=== PATIENT | female | born 1970 | race Caucasian/White ===

== ENCOUNTER 2022-01-20 07:00 | Inpatient (IN) ==
--- NOTE | 2021-12-25 12:54 | PAT Medication Instructions ---
Medication Instructions Date of Service December 25, 2021 Home Medications atorvastatin 10 mg tablet 10 mg PO HS cholecalciferol (vitamin D3) 125 mcg (5,000 unit) tablet (Vitamin D3) 125 mcg PO HS cyanocobalamin (vitamin B-12) 1,000 mcg capsule 1,000 mcg PO HS dulaglutide 1.5 mg/0.5 mL subcutaneous pen injector (Trulicity) 1.5 mg subcut WK fluoxetine 40 mg capsule 40 mg PO HS furosemide 40 mg tablet (Lasix) 40 mg PO BID gabapentin 600 mg tablet 600 mg PO HS hydroxyzine HCl 25 mg tablet 25 mg PO BID meloxicam 15 mg tablet 15 mg PO DAILY metformin 1,000 mg tablet 1,000 mg PO BID ropinirole 0.5 mg tablet 0.5 mg PO HS zolpidem 10 mg tablet (Ambien) 10 mg PO HS Continue as directed dulaglutide 1.5 mg/0.5 mL subcutaneous pen injector (Trulicity) 1.5 mg subcut WK ASK your surgeon for instructions meloxicam 15 mg tablet 15 mg PO DAILY DO NOT take the morning of surgery furosemide 40 mg tablet (Lasix) 40 mg PO BID metformin 1,000 mg tablet 1,000 mg PO BID Take morning of surgery With a small sip of water, OTHERWISE NOTHING TO EAT OR DRINK AFTER MIDNIGHT: hydroxyzine HCl 25 mg tablet 25 mg PO BID Take evening before surgery atorvastatin 10 mg tablet 10 mg PO HS cholecalciferol (vitamin D3) 125 mcg (5,000 unit) tablet (Vitamin D3) 125 mcg PO HS cyanocobalamin (vitamin B-12) 1,000 mcg capsule 1,000 mcg PO HS fluoxetine 40 mg capsule 40 mg PO HS furosemide 40 mg tablet (Lasix) 40 mg PO BID gabapentin 600 mg tablet 600 mg PO HS hydroxyzine HCl 25 mg tablet 25 mg PO BID metformin 1,000 mg tablet 1,000 mg PO BID ropinirole 0.5 mg tablet 0.5 mg PO HS zolpidem 10 mg tablet (Ambien) 10 mg PO HS Other Notes If you have any questions please call us at [phone] or [phone] or [phone] or [phone]
--- NOTE | 2022-01-01 10:24 | Anesthesiology Consultation ---
Date of Service January 01, 2022 Assessment & Plan (1) Encounter for pre-operative examination: Plan - check BSG am DOS. - PCP pre-op evaluation 01/07/22. PAT testing to be faxed to PCP. Chart Review Chart Review: Pending: Refer to Additional Notes / Consult section and Patient seen in Pre Admission Testing Teaching & Discussion Pre-Anesthesia Teaching/Discussion Notes: Instructed NPO after midnight before surgery, except medications with 15 cc of water. Medication instructions provided according to the PAT guidelines. History Surgery Operation Date: 01/19/22 13:10 Proposed Procedures p L4-S1 Decompression and Fusion, Spinal Cord Monitoring - Pradip Gilliam, Height/Weight Height: 5 ft 5 in Weight: 87.997 kg Allergies Allergy/AdvReac Type Severity Reaction Status Date / Time cinnamon Allergy Intermediate Hives Verified 12/25/21 11:19 Medications Home Medications Medication Instructions Recorded Confirmed Last Taken atorvastatin 10 mg tablet 10 mg PO HS 12/25/21 12/25/21 Unknown cholecalciferol (vitamin D3) 125 125 mcg PO HS 12/25/21 12/25/21 Unknown mcg (5,000 unit) tablet (Vitamin D3) cyanocobalamin (vitamin B-12) 1,000 mcg PO HS 12/25/21 12/25/21 Unknown 1,000 mcg capsule dulaglutide 1.5 mg/0.5 mL 1.5 mg subcut WK 12/25/21 12/25/21 Unknown subcutaneous pen injector (Trulicity) fluoxetine 40 mg capsule 40 mg PO HS 12/25/21 12/25/21 Unknown furosemide 40 mg tablet (Lasix) 40 mg PO BID 12/25/21 12/25/21 Unknown gabapentin 600 mg tablet 600 mg PO HS 12/25/21 12/25/21 Unknown hydroxyzine HCl 25 mg tablet 25 mg PO BID 12/25/21 12/25/21 Unknown meloxicam 15 mg tablet 15 mg PO DAILY 12/25/21 12/25/21 Unknown metformin 1,000 mg tablet 1,000 mg PO BID 12/25/21 12/25/21 Unknown ropinirole 0.5 mg tablet 0.5 mg PO HS 12/25/21 12/25/21 Unknown zolpidem 10 mg tablet (Ambien) 10 mg PO HS 12/25/21 12/25/21 Unknown Past Medical History Medical History (Updated 01/01/22 @ 11:15 by Philly Wyatt PA-C) Degenerative disc disease Depression Diabetes mellitus, type 2 NIDDM History of COVID-17 JUNE 2019>denies hospitalization>SYMPTOMS RESOLVED Hx of gout Hyperlipidemia Migraine Peripheral neuropathy Restless leg syndrome Sleep apnea NO DEVICE Spinal stenosis Swelling of lower extremity REASON FOR LASIX BID Patient denies h/o stroke, seizures, heart attack, heart failure, HTN, blood clots or blood transfusions. Exercise / Class Metabolic Activity III < 4 Walking/Shop/Light housework (denies CP or SOB with usual activities) Past Family History Family History Other No family history of adverse response to anesthesia Past Surgical History Surgical History (Updated 01/01/22 @ 11:16 by Philly Wyatt PA-C) H/O elbow surgery LEFT X 2 (NERVE REPAIR) H/O total hysterectomy History of appendectomy History of cholecystectomy History of colonoscopy History of tonsillectomy and adenoidectomy Nausea and vomiting after administration of anesthetic agent denies needing scop patch S/P lumbar microdiscectomy [place] teeth removed Past Anesthesia History No Hx of Anesthesia Complications and No Family Hx of Anesthesia Complications History of PONV History of PONV (denies needing scop patch) and Hx of Motion Sickness Social History Smoking Status: Current every day smoker tobacco type: cigarettes Smoking cigarettes per day: 10-20 CIG PER DAY>ADVISED Do You Dip or Chew Tobacco: No Hx Alcohol Use: Yes alcohol intake frequency: holidays/special occasions only substance use type: does not use Review of Systems Patient denies chest pain, shortness of breath, dyspnea on exertion, reflux, fever, chills, cough, wheezing, or palpitations. Physical Exam Vital Signs Vitals BP 108/77 P 85 TEMP 98.3 SP02 98% on RA RESP 18 Physical Full cervical extension range of motion without pain Slightly enlarged L , s/p biopsy TMD 3.5 finger breadths Mallampati Score 2 Dentition: intact, denies chipped or loose teeth, caps/crowns, implants or bridges Lungs: normal respiratory effort. Clear throughout to auscultation, no adventitious breath sounds Cardiac: regular rate and rhythm, no murmurs noted Carotid arteries: negative bruit bilat Lab Results Anesthesia Preop Results Results Anesthesia Widget: WBC 11.68 K/ul (4.8-10.8) H 01/01/22 Hgb 14.4 g/dl (12.0-16.0) 01/01/22 Hct 41.9 % (34.1-44.9) 01/01/22 Plt 351 K/uL (130-400) 01/01/22 Na 139 mmol/L (136-145) 01/01/22 K 4.0 mmol/L (3.5-5.1) 01/01/22 Cl 104 mmol/L (98-107) 01/01/22 CO2 26 mmol/L (21-32) 01/01/22 BUN 17 mg/dl (6-23) 01/01/22 Creat 0.79 mg/dl (0.6-1.2) 01/01/22 Glucose Level 100 mg/dl (70-99(Fasting)) H 01/01/22 PT 10.2 Seconds (9.0-12.0) 01/01/22 PTT 26.1 Seconds (21.0-31.0) 01/01/22 INR 1.0 (0.9-1.1) 01/01/22 HA1c 6.7 % (4.5-5.6) H 01/01/22 Urine Color Yellow 01/01/22 Urine Appearance Clear (Clear) 01/01/22 Urine pH 5.5 (4.5-7.5) 01/01/22 Urine Specific [place] 1.007 (1.000-1.030) 01/01/22 Urine Protein Negative (Negative) 01/01/22 Urine Glucose (UA) Negative (Negative) 01/01/22 Urine Ketones Negative (Negative) 01/01/22 Urine Blood Negative (Negative) 01/01/22 Urine Nitrite Negative (Negative) 01/01/22 Urine Bilirubin Negative (Negative) 01/01/22 Urine Urobilinogen Negative (Negative) 01/01/22 Urine Leukocyte Esterase Negative (Negative) 01/01/22 Blood Type O Positive 01/01/22 Antibody Screen NEGATIVE 01/01/22 Testing Electrocardiogram Date: 01/01/22 NSR, rate 81 bpm Left axis deviation RBBB Chest X-Ray Date: 01/01/22 No acute chest disease COVID-19 Risk Screen Screening Information COVID-19 Screen Date: 01/01/22 Exposure 21 Days Family/Household +COVID Last 21 Days: No Exposure 10 Days Any COVID Exposure Last 10 Days: No Symptoms Last 10 Days Experienced COVID Sx Last 10 Days: No + COVID 0-90 Days COVID + in Last 0-90 Days: No
[~2022-01-20 07:00] MED LIST: ACETAMINOPHEN 500 MG TAB PO SCH; CeleBREX 200 MG CAP PO SCH; GABAPENTIN 900 MG DOSE PO SCH; LR 15ML/HR IV SCH; ceFAZolin 2000MG 2,000 MG/15 ML SYR IV SCH
[2022-01-20] MEDS ORDERED: ePHEDrine sulfate 50 MG/ML AMP IV PRN (08:08)
[2022-01-20] MEDS ORDERED: ONDANSETRON INJ 2 MG/ML 2 ML VIAL IV PRN ×2 (08:08→14:01)
[2022-01-20] MEDS ORDERED: ATROPINE SULFATE 0.1 MG/ML 10ML SYR IV PRN (08:08)
[2022-01-20] MEDS ORDERED: MEPERIDINE HCL 25 MG/ML CARP/VIAL IV PRN (08:08)
[2022-01-20] MEDS ORDERED: MIDAZOLAM HCL 1 MG/ML 2ML VIAL ONE (08:25)
[2022-01-20] MEDS ORDERED: fentaNYL citrate 100 MCG/2 ML VIAL ONE ×2 (08:25)
--- NOTE | 2022-01-20 09:10 | History & Physical Bridge Note ---
Date of Service January 20, 2022 History & Physical Bridge Note I have examined the patient, reviewed the History & Physical and in the interval since the performance of the History & Physical I have noted the following changes of clinical significance: no changes noted
--- NOTE | 2022-01-20 09:11 | History & Physical Report ---
Date of Service January 20, 2022 Assessment & Plan (1) Neurogenic claudication due to lumbar spinal stenosis: Plan: L4-S1 decompression and fusion History of Present Illness Chief Complaint: Back and leg pain Primary Care Provider: Brett Ayala This is a 51-year-old female who presents with chronic persistent back and leg pain. Failed extensive course of nonoperative care. For surgical invention. Allergies Allergy/AdvReac Type Severity Reaction Status Date / Time cinnamon Allergy Intermediate Hives Verified 01/20/22 07:22 Home Medications Medication Instructions Recorded Confirmed Type atorvastatin 10 mg tablet 10 mg PO HS 12/25/21 01/20/22 History cholecalciferol (vitamin D3) 125 125 mcg PO HS 12/25/21 01/20/22 History mcg (5,000 unit) tablet (Vitamin D3) cyanocobalamin (vitamin B-12) 1,000 mcg PO HS 12/25/21 01/20/22 History 1,000 mcg capsule dulaglutide 1.5 mg/0.5 mL 1.5 mg subcut WK 12/25/21 01/20/22 History subcutaneous pen injector (Trulicity) fluoxetine 40 mg capsule 40 mg PO HS 12/25/21 01/20/22 History furosemide 40 mg tablet (Lasix) 40 mg PO BID 12/25/21 01/20/22 History gabapentin 600 mg tablet 600 mg PO HS 12/25/21 01/20/22 History hydroxyzine HCl 25 mg tablet 25 mg PO BID 12/25/21 01/20/22 History meloxicam 15 mg tablet 15 mg PO DAILY 12/25/21 01/20/22 History metformin 1,000 mg tablet 1,000 mg PO BID 12/25/21 01/20/22 History ropinirole 0.5 mg tablet 0.5 mg PO HS 12/25/21 01/20/22 History zolpidem 10 mg tablet (Ambien) 10 mg PO HS 12/25/21 01/20/22 History Past Med/Surg History Medical History (Updated 01/20/22 @ 09:11 by Pradip Gilliam DO) Degenerative disc disease Depression Diabetes mellitus, type 2 NIDDM History of COVID-17 JUNE 2019>denies hospitalization>SYMPTOMS RESOLVED Hx of gout Hyperlipidemia Migraine Peripheral neuropathy Restless leg syndrome Sleep apnea NO DEVICE Spinal stenosis Swelling of lower extremity REASON FOR LASIX BID Surgical History H/O elbow surgery LEFT X 2 (NERVE REPAIR) H/O total hysterectomy History of appendectomy History of cholecystectomy History of colonoscopy History of tonsillectomy and adenoidectomy Nausea and vomiting after administration of anesthetic agent denies needing scop patch S/P lumbar microdiscectomy [place] teeth removed Family History Other No family history of adverse response to anesthesia Social History (System 07/10/18 @ 15:13 by Yael Rojas) Smoking Status: Current every day smoker Cigarettes Per Day: 10-20 CIG PER DAY>ADVISED; Second Hand Exposure: Yes (BOYFRIEND SMOKES); Do You Dip or Chew Tobacco: No; Hx Alcohol Use: Yes Preferred Language: [place] Cutter Gas Required: No Beliefs That Will Affect Care: None Current Living Situation: Significant Other Feels Safe at Home: Yes Safety Concerns: Feels Safe At This Time Assistive Devices: None Physical Exam Physical Exam: Patient is alert and oriented Heart regular rhythm Lungs clear Results & Data Results & Data ([facility]) Vital Signs (Past 12 Hours) Vital Signs Temp Pulse Resp BP Pulse Ox O2 Del Method 01/20/22 07:29 36.8 C 92 H 16 124/87 98 Room Air
[2022-01-20] MEDS ORDERED: ceFAZolin 330 MG/ML 1 GM VIAL ONE (09:24)
[2022-01-20] MEDS ORDERED: BUPIVACAINE/EPINEPHRINE 0.25% 1:200,000 30 ML VIAL ONE (09:24)
[2022-01-20] MEDS ORDERED: HYDROmorphone INJ 2 MG/ML SYR/VIAL ONE (10:12)
[2022-01-20] MEDS ORDERED: FLOSEAL HEMOSTATIC MATRIX 10ML TOP ONE (10:24)
[2022-01-20] MEDS ORDERED: LARYING-O-JET KIT (LTA) ONE (10:26)
[2022-01-20] MEDS ORDERED: GLYCOPYRROLATE 0.2 MG/ML VIAL ONE (10:26)
[2022-01-20] MEDS ORDERED: LIDOCAINE 2% MPF LOCAL 5 ML VIAL INFIL ONE (10:26)
[2022-01-20] MEDS ORDERED: DEXAMETHASONE SOD INJ 4 MG/ML VIAL ONE (10:26)
[2022-01-20] MEDS ORDERED: ROCURONIUM BROMIDE 10 MG/ML 5 ML VIAL IV ONE (10:26)
[2022-01-20] MEDS ORDERED: NEOSTIGMINE METHYLSULFATE 1 MG/ML 10ML VIAL ONE (10:26)
[2022-01-20] MEDS ORDERED: PROPOFOL IV EMULSION 10 MG/ML 20 ML VIAL IV ONE (10:26)
[2022-01-20] MEDS ORDERED: PHENYLEPHRINE 100MCG/ML 5ML SYR ONE (10:26)
[2022-01-20] MEDS ORDERED: ONDANSETRON INJ 2 MG/ML 2 ML VIAL ONE (10:26)
--- NOTE | 2022-01-20 12:20 | Operative Report ---
Post Operative Report Pre & Post Diagnosis Operation Date: 01/19/22 12:00 <No data on this case meets the specified criteria> Operation Date: 01/20/22 09:05 Pre-Op Diagnosis: Neurogenic Claudication due to Lumbar Spinal Stenosis Post-Op Diagnosis: Neurogenic Claudication due to Lumbar Spinal Stenosis I identified the patient and participated in the time-out.: Yes Procedure Operation Date: 01/19/22 12:00 <No data on this case meets the specified criteria> Operation Date: 01/20/22 09:05 Actual Procedures #1 revision decompression with bilateral medial facetectomies and foraminotomies L3-L4, L4-5 and L5-S1. #2 posterior spinal fusion L4-5 L5-S1. #3 placement posterior instrumentation L4-5 L5-S1. #4 interbody fusion L4-L5 L5-S1. #5 placement of Spira 9 x 20 mm cage at L4-5 and 11 x 22 mm cage L5-S1. #6 placement locally harvested morselized autograft in the posterior gutters. #7 placement I factor quality test interbody space and posterior lateral gutters. Surgeon Pradip Gilliam, DO Ice Cutter None Estimated Blood Loss 75 Findings Consistent with Post-Op Diagnosis Specimens None Indications This is a 51-year-old female with presents above-mentioned diagnosis after failed extensive course of nonoperative care is here for the above-mentioned procedure. Description of Procedure Patient was met with identified informed consent obtained. Patient was then taken to the operative suite underwent a patient placed in a prone position on the [place] table top Scott frame. All bony prominences well-padded eyes inspected to ensure no external pressure placed upon them. This point lumbar spine was prepped and draped in a sterile fashion. Sharp dissection with assistance bradycardia spinal abdomen exposing the remaining lamina transverse processes of L4-L5 and sacral ala bilaterally. From a caudal to cephalad fashion revision complete laminectomy of L5 L4 and partial L3 was performed including bilateral medial facetectomies and foraminotomies addressing severe spinal stenosis. Pedicle screws were then placed in L4-L5 and S1 levels bilaterally with assistance of fluoroscopy and appropriate sized alvarado placed. By way of a transforaminal approach and left complete discectomy of L5- S1 was performed endplates curetted to subcortical any bone and a 11 x 22 mm spiral cage with I factor tapped in position. Then proceeded to L4-L5 and again by way the transforaminal approach on the left complete discectomy performed endplates curetted to subcortically bone and a 9 x 20 mm spiral cage with I factor tapped in position. The rods then locked in final position bilaterally. The transverse processes of L4-L5 and sacral ala burred to subcortical bleeding bone. I factor model V toss and locally harvested morselized autograft was placed in the posterior gutters. 15 round MILENA drain inserted. The incision was then closed with 1 Vicryl the fascia 2-0 Vicryl subcutaneously and 4 Monocryl for fascial closure. Steri-Strip sterile dressings placed. Patient waken taken to PACU in stable condition. Please note spinal cord monitoring was utilized at the procedure no changes noted. I attest to the content of the Intraoperative Record and any orders documented therein. Any exceptions are noted below.
--- NOTE | 2022-01-20 12:31 | Fluoroscopy Report ---
FL lumbar spine 2-3V HISTORY: 51 years-old Female L4-S1 DFI COMPARISON: None TECHNIQUE: 2 spot fluoroscopic images of the lumbar spine were obtained utilizing 37.0 seconds fluoro scopy time FINDINGS: Posterior interbody alvarado and screw fusion with discectomy at L4-S1. Alignment appears satisfactory. Th e hardware appears intact. A surgical sponge projects over the presacral tissues. Mild multilevel spo ndylitic spurring. IMPRESSION: Fluoroscopic assistance as above. ACT 112: Negative or not required by law. The above report was generated using voice recognition software. It may contain grammatical, syntax o r spelling errors. Electronically signed by: Cedric Herring M.D. 01/20/2022 12:29 PM
[2022-01-20] MEDS: fentaNYL citrate 100 MCG/2 ML VIAL IV PRN ×4 (12:33→12:48)
[2022-01-20] MEDS: MoRPHine SULFATE 10 MG/ML CARP/VIAL IV PRN ×2 (12:53→12:58)
--- NOTE | 2022-01-20 13:07 | Anesthesiology Progress Note ---
Date of Service January 20, 2022 Anesthesia Post Procedure Vital Signs Vital Signs: Temp Pulse Pulse Resp BP Pulse Ox O2 Del Method 01/20/22 13:00 104 H 12 128/77 99 Oxymask 01/20/22 12:50 108 H 13 123/92 97 Oxymask 01/20/22 12:40 105 H 14 131/86 99 Oxymask 01/20/22 12:30 100 H 14 125/77 98 Oxymask 01/20/22 12:22 36.5 C 98 H 14 130/83 99 Oxymask 01/20/22 07:29 36.8 C 92 H 16 124/87 98 Room Air O2 Flow Rate 01/20/22 13:00 4 01/20/22 12:50 4 01/20/22 12:40 4 01/20/22 12:30 6 01/20/22 12:22 6 01/20/22 07:29 Pain Intensity Lower Back: Pain Intensity: 5 Transfer of Care Handoff Completed per policy Notes Mental Status: alert / awake / arousable Patient Amnestic to Procedure: Yes Nausea / Vomiting: adequately controlled Pain: adequately controlled Airway Patency, RR, SpO2: stable & adequate BP & HR: stable & adequate Hydration State: stable & adequate Anesthetic Complications: no major complications apparent
[2022-01-20] MEDS ORDERED: ALUMINUM/MAGNESIUM SUSP 30 ML UDC PO PRN (14:01)
[2022-01-20] MEDS ORDERED: HYDROmorphone INJ 0.5 MG/0.5 ML SYR IV PRN (14:01)
[2022-01-20] MEDS ORDERED: LORazepam 0.5 MG TAB PO PRN (14:01)
[2022-01-20] MEDS ORDERED: METOCLOPRAMIDE HCL INJ 5 MG/ML 2 ML VIAL IV PRN (14:01)
[2022-01-20] MEDS ORDERED: PROMETHAZINE HCL 12.5 MG in SODIUM CHLORIDE 0.9% 50 ML IV PRN (14:01)
[2022-01-20] MEDS ORDERED: MAGNESIUM HYDROXIDE SUSP 30 ML UDC PO PRN (14:01)
[2022-01-20] MEDS ORDERED: bisacodyL 10 MG SUPP PR PRN (14:01)
[2022-01-20] MEDS ORDERED: SOD PHOSPHATE/SOD BIPHOSPHATE ENEMA 132 ML BTL PR PRN (14:01)
[2022-01-20] MEDS ORDERED: LORazepam 0.5 MG in SYRINGE 0 ML IV PRN (14:01)
[2022-01-20] MEDS ORDERED: ACETAMINOPHEN 1,000 MG/100 ML VIAL IV PRN (14:01)
[2022-01-20] MEDS ORDERED: diphenhydrAMINE Capsule 25 MG CAP PO PRN (14:01)
[2022-01-20] MEDS ORDERED: PHARMACY GLYCEMIC MGMT CONSULT PRN (14:01)
[2022-01-20] MEDS ORDERED: hydrOXYzine HCl 25 MG TAB PO PRN (14:01)
[2022-01-20] MEDS ORDERED: ONDANSETRON 4 MG OD TAB PO PRN (14:01)
[2022-01-20] MEDS ORDERED: traMADol HCL 50 MG TABLET PO PRN (14:01)
[2022-01-20] MEDS ORDERED: NALOXONE HCL 0.4 MG/1 ML VIAL/CARP IV PRN (14:01)
[2022-01-20] MEDS ORDERED: FAMOTIDINE 20 MG TAB PO PRN (14:01)
[2022-01-20] MEDS: SODIUM CHLORIDE 0.9% 1000ML 1,000 ML IV SCH ×2 (14:12→23:05)
[2022-01-20] MEDS ORDERED: CARBOHYDRATES FOR HYPOGLYCEMIA PO PRN (14:15)
[2022-01-20] MEDS ORDERED: GLUCOSE 40% GEL 15 GM TUBE PO PRN (14:15)
[2022-01-20] MEDS ORDERED: DEXTROSE 50% 50 ML SYRINGE IV PRN (14:15)
[2022-01-20] MEDS ORDERED: GLUCAGON FOR INJ 1 MG VIAL IM PRN (14:15)
[2022-01-20] MEDS ORDERED: GLUCOSE 10 TAB/TUBE PO PRN (14:15)
--- NOTE | 2022-01-20 14:28 | Pharmacy Report ---
Pharmacy Glycemic Short Note 2 - Date of Service January 20, 2022 - Glycemic Short BSG Results (Last 24 hours): 01/20/22 01/20/22 07:21 12:24 POC Glucose 128 H 156 H OUTPATIENT ANTIDIABETIC REGIMEN: * metformin 1000 mg PO BIDM * Trulicity 1.5 mg SC weekly HbA1c 6.7% (01/01/22) ASSESSMENT: * MS is a 51 year old female POD #0 s/p L4-S1 spinal decompression/fusion * Received 8 mg IV dexamethasone in OR, ordered 6 mg IV daily ongoing * Will give Lantus postoperatively with aggressive Novolog parameters * Well-controlled T2DM as an outpatient based on A1c PLAN FOR INPATIENT GLYCEMIC CONTROL: * Hold outpatient oral diabetes medications * Basal insulin * Lantus 20 units SC x 1 to cover dexamethasone (~0.25 unit/kg) * Reassess with AM dexamethasone * Bolus insulin * NovoLog per scale ACHS or Q6hrs while NPO * Goal Range: Low 110 mg/dL - High 140 mg/dL * Correction Factor: 20 mg/dL/unit * Nutritional / Prandial insulin per carb ratio of 1 unit per 7 grams CHO consumed
[2022-01-20] MEDS ORDERED: LANTUS PER UNIT CHARGE SQ ONE (14:30)
[2022-01-20] MEDS: ACETAMINOPHEN 500 MG TAB PO PRN ×2 (15:00→23:05)
--- NOTE | 2022-01-20 15:20 | Hospitalist Consultation ---
Date of Consultation January 20, 2022 Assessment & Plan (1) S/P spinal surgery: (2) Diabetes mellitus, type 2: (3) Swelling of lower extremity: (4) Restless leg syndrome: (5) Peripheral neuropathy: (6) Hyperlipidemia: (7) Depression: (8) Sleep apnea: Plan This is a 51-year-old female with PMH of type 2 diabetes, current smoker, dyslipidemia, depression, RLS, HÉCTOR intolerant to CPAP and other medical problems listed below who is POD#0 s/p revision decompression with bilateral medial facetectomies and foraminotomies L3-L4, L4-5 and L5-S1 and posterior spinal fusion L4-5 L5-S1 by Dr[address] Gilliam. S/p spinal surgery POD#0 s/p revision decompression with bilateral medial facetectomies and foraminotomies L3-L4, L4-5 and L5-S1 and posterior spinal fusion L4-5 L5-S1 by Dr[address] Gilliam Per ortho for pain control, wound care, anticoagulation and activities Monitor H&H (pre-op hgb 14.4, EBL 75ml) Continue incentive spirometry, PT/OT when appropriate DM II A1c 6.7 Hold home agents SSI while in-patient Glycemic consult placed BSG AC HS BLE edema Chronic condition. Uses lasix BID PRN at home. Denies h/o CHF diagnosis. Hold lasix for now RLS Ropinirole HS Depression Anxiety Continue fluoxetine, hydroxyzine. Hold zolpidem HS while receiving narcotics Hyperlipidemia Continue statin HÉCTOR CPAP intolerant Current smoker Nicotine patch Discussed importance of cessation PCP: Jamie Dispo: Per primary service Patient seen in collaboration with Dr. Disla. Please see addendum. Thank you for this consultation. We will follow the patient with you during their hospital stay. You can reach a [facility] of [facility] via [employer]. Supervising Physician Co-Signing Physician Notes Patient is a 51-year-old female with history of diabetes mellitus, obstructive sleep apnea and other medical problems was consulted for postop medical management. Patient is doing well postoperatively. Pain at the surgical site is controlled. She denies any chest pain, shortness of breath, dizziness, nausea, abdominal pain. Physical Exam: Vitals signs as noted above General Appearance:Moderately built and nourished, no apparent distress Head: normocephalic, Atraumatic Eyes: normal inspection, EOMI Neck: supple, Trachea midline Respiratory/Chest: Normal breath sounds, CTA, No accessory muscle use Cardiovascular: S1, S2, No murmur Abdomen/GI:Soft, Non tender, Bowel sounds present Back: Surgical site in dressing, +drain Extremities/Musculoskeletal:normal inspection, no edema Neurologic/Psych:AAOX3, grossly no focal neurological deficits Skin: normal color, warm Neurogenic Claudication due to Lumbar Spinal Stenosis S/P revision decompression and fusion surgery by Dr. Gilliam post op day #0 Wound care, DVT prophylaxis, pain control as per primary team. Continue incentive spirometer Monitor for postop anemia Bowel regimen to prevent constipation DM II Continue Insulin while hospitalized Monitor BGs I personally reviewed the record. Patient is interviewed and examined at bedside. Patient's care is coordinated with Chayo Hernandez PA-C. Please refer to the documentation above for details of patient's presentation and for discussion of other issues. History of Present Illness Reason for Consultation: Postop medical management Attending Physician: Pradip Gilliam, History of Present Illness This is a 51-year-old female with PMH of type 2 diabetes, current smoker, dyslipidemia, depression, RLS, HÉCTOR intolerant to CPAP and other medical problems listed below who is POD#0 s/p revision decompression with bilateral medial facetectomies and foraminotomies L3-L4, L4-5 and L5-S1 and posterior spinal fusion L4-5 L5-S1 by Dr. Gilliam. Patient is reasonably comfortable following surgery. Does have discomfort at surgical site but just received pain medication. No longer has paresthesias in left lower extremity. No weakness in lower extremities. No fever, chills, lightheadedness, headache, chest pain, shortness of breath, nausea, vomiting, abdominal pain, dysuria or diarrhea. Follows with Dr. Ayala for primary care. Current every day smoker. Allergies Allergy/AdvReac Type Severity Reaction Status Date / Time cinnamon Allergy Intermediate Hives Verified 01/20/22 07:22 Home Medications Medication Instructions Recorded Confirmed Type atorvastatin 10 mg tablet 10 mg PO HS 12/25/21 01/20/22 History cholecalciferol (vitamin D3) 125 125 mcg PO HS 12/25/21 01/20/22 History mcg (5,000 unit) tablet (Vitamin D3) cyanocobalamin (vitamin B-12) 1,000 mcg PO HS 12/25/21 01/20/22 History 1,000 mcg capsule dulaglutide 1.5 mg/0.5 mL 1.5 mg subcut WK 12/25/21 01/20/22 History subcutaneous pen injector (Trulicity) fluoxetine 40 mg capsule 40 mg PO HS 12/25/21 01/20/22 History furosemide 40 mg tablet (Lasix) 40 mg PO BID 12/25/21 01/20/22 History gabapentin 600 mg tablet 600 mg PO HS 12/25/21 01/20/22 History hydroxyzine HCl 25 mg tablet 25 mg PO BID 12/25/21 01/20/22 History meloxicam 15 mg tablet 15 mg PO DAILY 12/25/21 01/20/22 History metformin 1,000 mg tablet 1,000 mg PO BID 12/25/21 01/20/22 History ropinirole 0.5 mg tablet 0.5 mg PO HS 12/25/21 01/20/22 History zolpidem 10 mg tablet (Ambien) 10 mg PO HS 12/25/21 01/20/22 History Patient History Medical History (Updated 01/20/22 @ 15:15 by Chayo Hernandez PA-C) Degenerative disc disease Depression Diabetes mellitus, type 2 NIDDM History of COVID-17 JUNE 2019>denies hospitalization>SYMPTOMS RESOLVED Hx of gout Hyperlipidemia Migraine Peripheral neuropathy Restless leg syndrome Sleep apnea NO DEVICE Spinal stenosis Swelling of lower extremity REASON FOR LASIX BID Surgical History (Updated 01/20/22 @ 15:15 by Chayo Hernandez PA-C) H/O elbow surgery LEFT X 2 (NERVE REPAIR) H/O total hysterectomy History of appendectomy History of cholecystectomy History of colonoscopy History of tonsillectomy and adenoidectomy Nausea and vomiting after administration of anesthetic agent denies needing scop patch S/P lumbar microdiscectomy Kistler teeth removed Family History Other No family history of adverse response to anesthesia Social History Smoking Status: Current every day smoker Cigarettes Per Day: 10-20 CIG PER DAY>ADVISED; Second Hand Exposure: Yes (BOYFRIEND SMOKES); Do You Dip or Chew Tobacco: No; Hx Alcohol Use: Yes Preferred Language: [place] Administrator Of Home Health Required: No Beliefs That Will Affect Care: None Current Living Situation: Significant Other Feels Safe at Home: Yes Safety Concerns: Feels Safe At This Time Assistive Devices: None Review of Systems Review of Systems: At least ten systems reviewed and negative except as noted in the HPI. Physical Exam Physical Exam: Gen: WD/WN, NAD, lying in bed, A&Ox3, anxious HEENT: Normocephalic, atraumatic, conjunctivae moist, sclerae anicteric, mucous membranes moist Lung: Clear to Auscultation bilaterally, no wheezes/rales/rhonchi Heart: Regular rate, regular rhythm, no murmurs, rubs, or gallops Abdomen: Soft, NT, ND +BS x 4 Extremities: Spinal dressing c/d/i. MILENA drain visualized. No edema Skin: Warm, no rash Results & Data Results & Data ([facility]) Vital Signs (Past 12 Hours) Vital Signs Temp Pulse Pulse Resp BP Pulse Ox O2 Del Method 01/20/22 15:02 36.5 C 107 H 16 110/69 98 Nasal Cannula 01/20/22 14:35 36.8 C 108 H 16 103/69 97 Nasal Cannula 01/20/22 14:00 36.9 C 112 H 16 108/72 96 Nasal Cannula 01/20/22 13:40 105 H 15 123/83 94 Nasal Cannula 01/20/22 13:25 36.7 C 108 H 13 131/72 97 Nasal Cannula 01/20/22 13:10 36.5 C 105 H 16 139/76 99 Nasal Cannula 01/20/22 13:00 104 H 12 128/77 99 Oxymask 01/20/22 12:50 108 H 13 123/92 97 Oxymask 01/20/22 12:40 105 H 14 131/86 99 Oxymask 01/20/22 12:30 100 H 14 125/77 98 Oxymask 01/20/22 12:22 36.5 C 98 H 14 130/83 99 Oxymask 01/20/22 07:29 36.8 C 92 H 16 124/87 98 Room Air O2 Flow Rate 01/20/22 15:02 2 01/20/22 14:35 2 01/20/22 14:00 2 01/20/22 13:40 2 01/20/22 13:25 2 01/20/22 13:10 2 01/20/22 13:00 4 01/20/22 12:50 4 01/20/22 12:40 4 01/20/22 12:30 6 01/20/22 12:22 6 01/20/22 07:29
[2022-01-20] MEDS: INSULIN ASPART PER UNIT SC SCH ×3 (15:31→21:30)
[2022-01-20] MEDS: HYDROmorphone INJ 1 MG/ML SYRINGE IV PRN ×2 (16:09→19:11)
[2022-01-20] MEDS: NICOTINE 21 MG/24 HR TDSY TD SCH (18:37)
[2022-01-20] MEDS: ceFAZolin 2000MG 2,000 MG/15 ML SYR IV SCH (19:53)
[2022-01-20] MEDS ORDERED: ZOLPIDEM TARTRATE 10 MG TAB PO SCH (21:00)
[2022-01-20] MEDS: ATORVASTATIN 10 MG TAB PO SCH (21:27)
[2022-01-20] MEDS: FLUoxetine HCL 20 MG CAP PO SCH (21:27)
[2022-01-20] MEDS: DOCUSATE SODIUM/SENNA 50/8.6MG TAB PO SCH (21:27)
[2022-01-20] MEDS: hydrOXYzine HCl 25 MG TAB PO SCH (21:27)
[2022-01-20] MEDS: CYANOCOBALAMIN (B-12) 500 MCG TABLET PO SCH (21:27)
[2022-01-20] MEDS: rOPINIRole HCL 0.25 MG TABLET PO SCH (21:28)
[2022-01-20] MEDS: GABAPENTIN 600 MG TAB PO SCH (21:34)
[2022-01-21] MEDS: HYDROmorphone INJ 1 MG/ML SYRINGE IV PRN (01:17)
[2022-01-21] MEDS: ceFAZolin 2000MG 2,000 MG/15 ML SYR IV SCH (04:57)
[2022-01-21] MEDS: POLYETHYLENE (MIRALAX) 17 GM PACK PO SCH ×3 (05:04→18:06)
[2022-01-21] MEDS: oxyCODONE HCL IR 5 MG TAB (IMMEDIATE RELEASE) PO PRN ×3 (05:17→20:20)
[2022-01-21 07:19] LABS: Basophils # (auto) 0.03 K/uL (0-0.2); Basophils % (auto) 0.2 %; Eosinophils # (auto) 0.03 K/uL (0-0.50); Eosinophils % (auto) 0.2 %; Hemoglobin 11.7 g/dl (12.0-16.0); Immature Granulocytes # (auto) 0.09 K/uL (0.00-0.02); Immature Granulocytes % (auto) 0.6 %; Lymphocytes # (auto) 2.61 K/uL (1.2-3.4); Lymphocytes % (auto) 16.6 %; Mean Corpuscular Hemoglobin 30.7 pg (25.0-34.0); Mean Corpuscular Hgb Conc 34.4 g/dL (32.0-36.0); Mean Corpuscular Volume 89.2 fL (80.0-100.0); Mean Platelet Volume 8.9 fL (9.4-12.3); Monocytes # (auto) 1.46 K/uL (0.24-0.82); Monocytes % (auto) 9.3 %; Neutrophils # (auto) 11.54 K/uL (1.4-6.5); Neutrophils % (auto) 73.1 %; Platelet Count 299 K/uL (130-400); RDW Coefficient of Variation 12.9 % (11.5-14.5); RDW Standard Deviation 42.2 fL (36.4-46.3); Red Blood Count 3.81 M/uL (3.93-5.22); White Blood Count 15.76 K/ul (4.8-10.8)
[2022-01-21 07:36] LABS: BUN Creatinine Ratio 15.7 (10-20); Calcium 9.1 mg/dl (8.5-10.1); Creatinine Clr Calc Pharmacy 101.7 ml/min; Est GFR (African American) 116.3 ml/min; Est GFR (Non-African American) 100.3 ml/min; Potassium 3.6 mmol/L (3.5-5.1)
[2022-01-21] MEDS: ACETAMINOPHEN 500 MG TAB PO PRN (07:56)
[2022-01-21] MEDS: hydrOXYzine HCl 25 MG TAB PO SCH ×2 (07:57→20:21)
[2022-01-21] MEDS: dexAMETHasone 6 MG in SYRINGE 0 ML IV SCH (07:57)
[2022-01-21] MEDS: NICOTINE 21 MG/24 HR TDSY TD SCH (07:58)
[2022-01-21] MEDS ORDERED: LANTUS PER UNIT CHARGE SQ SCH (09:00)
[2022-01-21] MEDS: INSULIN ASPART PER UNIT SC SCH ×4 (09:04→21:13)
--- NOTE | 2022-01-21 09:36 | Orthopedic Progress Note ---
Date of Service January 21, 2022 Assessment & Plan (1) Neurogenic claudication due to lumbar spinal stenosis: Plan: This time initiate physical therapy monitor MILENA output anticipate discharge home in the next few days. Admission and Anticipated Discharge Date Admission Date: January 20, 2022 Subjective Back pain controlled leg pain markedly improved Physical Exam Physical Exam: Patient is seen in bed. She is comfortable. Asking strength testing. Results & Data ([facility]) Vital Signs (Past 12 Hours) Vital Signs Temp Pulse Resp BP Pulse Ox O2 Del Method 01/21/22 07:45 36.7 C 76 16 117/78 96 Room Air 01/21/22 04:22 36.6 C 88 17 112/77 95 Room Air 01/21/22 02:50 36.7 C 92 H 17 106/71 94 Room Air 01/20/22 22:51 36.8 C 81 16 112/75 95 Room Air
--- NOTE | 2022-01-21 10:45 | Hospitalist Progress Note ---
Date of Service January 21, 2022 Assessment & Plan (1) S/P spinal surgery: (2) Diabetes mellitus, type 2: (3) Swelling of lower extremity: (4) Restless leg syndrome: (5) Peripheral neuropathy: (6) Hyperlipidemia: (7) Depression: (8) Sleep apnea: Plan This is a 51-year-old female with PMH of type 2 diabetes, current smoker, dyslipidemia, depression, RLS, HÉCTOR intolerant to CPAP and other medical problems listed below who is POD#0 s/p revision decompression with bilateral medial facetectomies and foraminotomies L3-L4, L4-5 and L5-S1 and posterior spinal fusion L4-5 L5-S1 by Dr. Gilliam. S/p spinal surgery POD#1 s/p revision decompression with bilateral medial facetectomies and foraminotomies L3-L4, L4-5 and L5-S1 and posterior spinal fusion L4-5 L5-S1 by Dr. Gilliam Per ortho for pain control, wound care, anticoagulation and activities Monitor H&H (pre-op hgb 14.4, EBL 75ml) Continue incentive spirometry, PT/OT when appropriate DM II A1c 6.7 Hold home agents SSI while in-patient Glycemic consult ongoing and glucose is at goal. BSG AC HS LE swelling Chronic condition. Currently not present. Uses lasix BID PRN at home. Denies h/o CHF diagnosis. Hold lasix for now while giving fluids. Patient reports actually taking Lasix only 1-2 times per week. RLS Ropinirole HS Depression Anxiety Continue fluoxetine, hydroxyzine. Hold zolpidem HS while receiving narcotics Hyperlipidemia Continue statin HÉCTOR CPAP intolerant Current smoker Nicotine patch Discussed importance of cessation PCP: Jamie Dispo: Per primary service Thank you for this consultation. We will follow the patient with you during their hospital stay. You can reach a member of the [facility] via [employer]. Shirin Taylor DO [facility] Admission and Anticipated Discharge Date Admission Date: January 20, 2022 Subjective 51-year-old diabetic female with obstructive sleep apnea is status post back surgery. She reports her pain is significant and has been using IV Dilaudid and oxycodone overnight. She is preempting the need for high-dose oxycodone or Dilaudid with upcoming PT. She otherwise denies any chest pain and is tolerating p.o. and no shortness of breath is doing well. Review of Systems Review of Systems: All systems reviewed negative except as indicated above. Physical Exam Physical Exam: CONSTITUTIONAL: WNWD, vitals as above, generally well- appearing, NAD EYES: normal conjunctivae, no scleral icterus ENT: external ear and nose normal, MMM NECK: trachea midline, RESPIRATORY: clear to auscultation bilaterally, no crackles, rales or wheezes, normal respiratory effort CARDIOVASCULAR: regular rate and rhythm, S1 and 2 heard without murmurs, gallops or rubs, no JVD, no peripheral edema, no carotid bruits CHEST: inspection of chest was normal GASTROINTESTINAL: soft, nontender, ND, no guarding MUSCULOSKELETAL: strength 5/5 throughout, head is normocephalic and atraumatic, extremities are NVI SKIN: warm and dry, incision site not evaluated-covered with dressing. NEUROLOGIC: CN 2-12 grossly intact, no sensory deficit, normal cognition, normal speech, no tremor PSYCHIATRIC: alert cooperative and oriented to person, place and time. Euthymic mood, makes good eye contact, language grossly intact, recent and remote memory grossly intact. Results & Data Results & Data ([facility]) Vital Signs (Past 12 Hours) Vital Signs Temp Pulse Resp BP Pulse Ox O2 Del Method 01/21/22 07:45 36.7 C 76 16 117/78 96 Room Air 01/21/22 04:22 36.6 C 88 17 112/77 95 Room Air 01/21/22 02:50 36.7 C 92 H 17 106/71 94 Room Air 01/20/22 22:51 36.8 C 81 16 112/75 95 Room Air Laboratory Results Short CBC 01/21/22 Range/Units 06:59 WBC 15.76 H (4.8-10.8) K/ul Hgb 11.7 L (12.0-16.0) g/dl Hct 34.0 L (34.1-44.9) % Plt Count 299 (130-400) K/uL BMP 01/21/22 06:59 Sodium 138 Potassium 3.6 Chloride 104 Carbon Dioxide 28 BUN 11 Creatinine 0.70 Glucose 150 H Calcium 9.1 Medications Administered Current Inpatient Medications Acetaminophen (Acetaminophen 500 Mg Tab) 1,000 mg PO Q8H PRN PRN Reason: MILD Pain Scale 1,2,3 & Pre PT Stop: 02/19/22 14:00 Last Admin: 01/21/22 07:56 Dose: 1,000 mg Al Hydrox/Mg Hydrox/Simethicone (Aluminum/Magnesium Susp 30 Ml Udc) 30 ml PO Q6H PRN PRN Reason: Dyspepsia Stop: 02/19/22 14:00 Atorvastatin Calcium (Atorvastatin 10 Mg Tab) 10 mg PO HS SILVIO Stop: 02/19/22 20:59 Last Admin: 01/20/22 21:27 Dose: 10 mg Bisacodyl (Bisacodyl 10 Mg Supp) 10 mg PA DAILY PRN PRN Reason: Constipation Stop: 02/19/22 14:00 Cyanocobalamin (Cyanocobalamin (B-12) 500 Mcg Tablet) 1,000 mcg PO HS SILVIO Stop: 02/19/22 20:59 Last Admin: 01/20/22 21:27 Dose: 1,000 mcg Dextrose (Dextrose 50% 50 Ml Syringe) 25 - 50 ml IV UD PRN; Protocol PRN Reason: Hypoglycemia Protocol Stop: 02/19/22 14:14 Diphenhydramine HCl (Diphenhydramine Capsule 25 Mg Cap) 25 mg PO Q6H PRN PRN Reason: Allergic Rhinitis/Insomnia Stop: 02/19/22 14:00 Famotidine (Famotidine 20 Mg Tab) 20 mg PO Q12H PRN PRN Reason: Dyspepsia Stop: 02/19/22 14:00 Fluoxetine HCl (Fluoxetine Hcl 20 Mg Cap) 40 mg PO HS SILVIO Stop: 02/19/22 20:59 Last Admin: 01/20/22 21:27 Dose: 40 mg Gabapentin (Gabapentin 600 Mg Tab) 600 mg PO HS SILVIO Stop: 02/19/22 20:59 Last Admin: 01/20/22 21:34 Dose: 600 mg Glucagon (Glucagon For Inj 1 Mg Vial) 1 mg IM UD PRN; Protocol PRN Reason: Hypoglycemia Protocol Stop: 02/19/22 14:14 Glucose (Glucose 40% Gel 15 Gm Tube) 15 - 30 gm PO UD PRN; Protocol PRN Reason: Hypoglycemia Protocol Stop: 02/19/22 14:14 Glucose (Glucose 10 Tab/Tube) 4 - 8 tab PO UD PRN; Protocol PRN Reason: Hypoglycemia Protocol Stop: 02/19/22 14:14 Hydromorphone HCl (Hydromorphone Inj 0.5 Mg/0.5 Ml Syr) 0.5 mg IV Q3H PRN PRN Reason: MODERATE Pain (Scale 4,5,6) & Pre PT Stop: 02/03/22 14:00 Hydromorphone HCl (Hydromorphone Inj 1 Mg/Ml Syringe) 1 mg IV Q3H PRN PRN Reason: SEVERE Pain (Scale 7,8,9,10) Stop: 02/03/22 14:00 Last Admin: 01/21/22 01:17 Dose: 1 mg Hydroxyzine HCl (Hydroxyzine Hcl 25 Mg Tab) 25 mg PO BID SILVIO Stop: 02/19/22 20:59 Last Admin: 01/21/22 07:57 Dose: 25 mg Hydroxyzine HCl (Hydroxyzine Hcl 25 Mg Tab) 25 mg PO Q8H PRN PRN Reason: Anxiety Stop: 02/19/22 14:00 Sodium Chloride (Nss 1000ml) 1,000 mls @ 100 mls/hr IV .Q10H SILVIO Stop: 02/19/22 14:00 Last Infusion: 01/21/22 05:18 Dose: Infused Promethazine HCl 12.5 mg/ (Sodium Chloride) 50.5 mls @ 202 mls/hr IV Q6H PRN PRN Reason: Nausea &/or Vomiting Stop: 02/19/22 14:00 Acetaminophen (Ofirmev) 1,000 mg in 100 mls @ 400 mls/hr IV Q8H PRN PRN Reason: Pain Rating 1-3 & Pre PT Stop: 01/21/22 14:02 Lorazepam 0.5 mg/ Syringe 0.5 mls @ 2 mls/min IV Q8H PRN PRN Reason: Sedation/Anxiety Stop: 02/19/22 14:00 Dexamethasone 6 mg/ Syringe 1.5 mls @ 1 mls/min IV DAILY [facility] Stop: 01/23/22 09:02 Last Admin: 01/21/22 07:57 Dose: 1 mls/min Insulin Aspart (Insulin Aspart Per Unit) 0 units SC ACHS [facility] Stop: 02/19/22 14:29 Last Admin: 01/21/22 09:04 Dose: 6 units Insulin Glargine (Lantus Per Unit Charge) 20 units SQ DAILY [facility]; Protocol Stop: 01/23/22 09:01 Last Admin: 01/21/22 09:05 Dose: 20 units Lorazepam (Lorazepam 0.5 Mg Tab) 0.5 mg PO Q8H PRN PRN Reason: Sedation/Anxiety Stop: 02/19/22 14:00 Magnesium Hydroxide (Magnesium Hydroxide Susp 30 Ml Udc) 30 ml PO Q24H PRN PRN Reason: Constipation Stop: 02/19/22 14:00 Metoclopramide HCl (Metoclopramide Hcl Inj 5 Mg/Ml 2 Ml Vial) 10 mg IV Q6H PRN PRN Reason: Nausea &/or Vomiting Stop: 02/19/22 14:00 Miscellaneous (Carbohydrates For Hypoglycemia ) 15 - 30 gm PO UD PRN PRN Reason: Hypoglycemia Treatment Stop: 02/19/22 14:14 Miscellaneous (Remove Nicoderm Patch) 1 each N/A DAILY@0859 [facility] Stop: 02/20/22 08:58 Last Admin: 01/21/22 07:58 Dose: 1 each Miscellaneous Information (Pharmacy Glycemic Mgmt Consult) 1 each N/A UD PRN PRN Reason: Consult Stop: 02/19/22 14:00 Naloxone HCl (Naloxone Hcl 0.4 Mg/1 Ml Vial/Carp) 0.1 mg IV Q5M PRN PRN Reason: Oversedation/Resp depression Stop: 02/19/22 14:00 Nicotine (Nicotine 21 Mg/24 Hr Tdsy) 21 mg TD QAM [facility] Stop: 02/19/22 17:29 Last Admin: 01/21/22 07:58 Dose: 21 mg Ondansetron HCl (Ondansetron Inj 2 Mg/Ml 2 Ml Vial) 4 mg IV Q6H PRN PRN Reason: Nausea &/or Vomiting Stop: 02/19/22 14:00 Ondansetron HCl (Ondansetron 4 Mg Od Tab) 4 mg PO Q6H PRN PRN Reason: Nausea Stop: 02/19/22 14:00 Oxycodone HCl (Oxycodone Hcl Ir 5 Mg Tab (Immediate Release)) 5 - 10 mg PO Q4H PRN PRN Reason: Pain & Pre PT Stop: 02/03/22 14:00 Last Admin: 01/21/22 05:17 Dose: 10 mg Polyethylene Glycol (Polyethylene (Miralax) 17 Gm Pack) 17 gm PO Q6 SILVIO Stop: 02/20/22 05:59 Last Admin: 01/21/22 05:04 Dose: Not Given Ropinirole HCl (Ropinirole Hcl 0.25 Mg Tablet) 0.5 mg PO [facility] Stop: 02/19/22 20:59 Last Admin: 01/20/22 21:28 Dose: 0.5 mg Senna/Docusate Sodium (Docusate Sodium/Senna 50/8.6mg Tab) 2 tab PO [facility] Stop: 02/19/22 20:59 Last Admin: 01/20/22 21:27 Dose: 2 tab Sodium Biphosphate/Sodium Phosphate (Sod Phosphate/Sod Biphosphate Enema 132 Ml Btl) 132 ml PA ONE PRN PRN Reason: Constipation Stop: 02/19/22 14:00 Tramadol HCl (Tramadol Hcl 50 Mg Tablet) 50 - 100 mg PO Q4H PRN PRN Reason: Moderate-Severe pain & Pre PT Stop: 02/19/22 14:00 Zolpidem Tartrate (Zolpidem Tartrate 10 Mg Tab) 10 mg PO [facility] Stop: 02/19/22 20:59
[2022-01-21] MEDS ORDERED: COUGH DROP (SUGAR FREE) LOZ 24 LOZ/1 BOX BUCCAL ONE (11:36)
[2022-01-21] MEDS: SODIUM CHLORIDE 0.9% 1000ML 1,000 ML IV SCH (12:46)
[2022-01-21] MEDS: CYANOCOBALAMIN (B-12) 500 MCG TABLET PO SCH (20:20)
[2022-01-21] MEDS: DOCUSATE SODIUM/SENNA 50/8.6MG TAB PO SCH (20:21)
[2022-01-21] MEDS: rOPINIRole HCL 0.25 MG TABLET PO SCH (20:21)
[2022-01-21] MEDS: FLUoxetine HCL 20 MG CAP PO SCH (20:21)
[2022-01-21] MEDS: ATORVASTATIN 10 MG TAB PO SCH (20:21)
[2022-01-21] MEDS: GABAPENTIN 600 MG TAB PO SCH (20:21)
[2022-01-22] MEDS: oxyCODONE HCL IR 5 MG TAB (IMMEDIATE RELEASE) PO PRN ×3 (05:59→17:53)
[2022-01-22] MEDS: NICOTINE 21 MG/24 HR TDSY TD SCH (09:49)
[2022-01-22] MEDS: hydrOXYzine HCl 25 MG TAB PO SCH ×2 (09:49→20:02)
[2022-01-22] MEDS: dexAMETHasone 6 MG in SYRINGE 0 ML IV SCH (09:50)
--- NOTE | 2022-01-22 09:56 | Orthopedic Progress Note ---
Date of Service January 22, 2022 Assessment & Plan (1) Neurogenic claudication due to lumbar spinal stenosis: Plan: Patient is doing well postop day #2. We will continue with ambulation gait training. Continue with GI DVT prophylaxis. Follows well today would likely get her discharged home tomorrow. Admission and Anticipated Discharge Date Admission Date: January 20, 2022 Subjective Patient was seen bedside in room 324. She is doing well this morning. She gets bouts of numbness going down the left leg at times. She has been standing and walking with physical therapy. Her pain is well controlled. She is tolerating p.o. She denies any other numbness, tingling, or paresthesias. Physical Exam Physical Exam: On exam she is alert and oriented. She is ambulating with a wheeled walker. Her dressing is clean dry and intact. Her strength and sensation are grossly intact. Results & Data ([facility]) Vital Signs (Past 12 Hours) Vital Signs Temp Pulse Resp BP Pulse Ox O2 Del Method 01/22/22 07:53 36.7 C 74 16 108/70 96 Room Air 01/21/22 22:21 36.7 C 75 17 119/79 97 Room Air
[2022-01-22] MEDS: INSULIN ASPART PER UNIT SC SCH ×4 (09:59→20:43)
[2022-01-22] MEDS: LANTUS PER UNIT CHARGE SQ SCH (10:00)
--- NOTE | 2022-01-22 11:55 | Pharmacy Report ---
Pharmacy Glycemic Short Note 2 - Date of Service January 22, 2022 - Glycemic Short BSG Results (Last 24 hours): 01/21/22 01/21/22 01/21/22 12:23 17:25 20:46 POC Glucose 168 H 188 H 170 H 01/22/22 08:29 POC Glucose 144 H OUTPATIENT ANTIDIABETIC REGIMEN: * Metformin 1000 mg PO BIDM * Trulicity 1.5 mg SC every Tuesday * HbA1c = 6.7% (01/01/22) ASSESSMENT: 01/22: * Sandra received a total of 54 units of insulin yesterday, 20 units basal + 34 units bolus. BSGs were: 299-307-896-170 mg/dL. * Fasting BSG today was 144 mg/dL. Remains on Dexamethasone 6 mg IV daily (Day #2/3). Will increase Lantus by ~20% today. * Tightening carb ratio slightly today as well. 01/20: * MS is a 51 year old female POD #0 s/p L4-S1 spinal decompression/fusion * Received 8 mg IV dexamethasone in OR, ordered 6 mg IV daily ongoing * Will give Lantus postoperatively with aggressive Novolog parameters * Well-controlled T2DM as an outpatient based on A1c PLAN FOR INPATIENT GLYCEMIC CONTROL: * Hold outpatient oral diabetes medications * Basal insulin * Lantus 25 unit SC daily (to be given with Dexamethasone) * Bolus insulin * NovoLog per scale ACHS or Q6hrs while NPO * Goal Range: Low 110 mg/dL - High 140 mg/dL * Correction Factor: 20 mg/dL/unit * Nutritional / Prandial insulin per carb ratio of 1 unit per 6 grams CHO consumed
--- NOTE | 2022-01-22 16:10 | Hospitalist Progress Note ---
Date of Service January 22, 2022 Assessment & Plan (1) S/P spinal surgery: (2) Diabetes mellitus, type 2: (3) Swelling of lower extremity: (4) Restless leg syndrome: (5) Peripheral neuropathy: (6) Hyperlipidemia: (7) Depression: (8) Sleep apnea: (9) Current smoker: Plan This is a 51-year-old female with PMH of type 2 diabetes, current smoker, dyslipidemia, depression, RLS, HÉCTOR intolerant to CPAP and other medical problems listed below who is POD#0 s/p revision decompression with bilateral medial facetectomies and foraminotomies L3-L4, L4-5 and L5-S1 and posterior spinal fusion L4-5 L5-S1 by Dr[address] Gilliam. S/p spinal surgery POD#2 s/p revision decompression with bilateral medial facetectomies and foraminotomies L3-L4, L4-5 and L5-S1 and posterior spinal fusion L4-5 L5-S1 by Dr[address] Gilliam Per ortho for pain control, wound care, anticoagulation and activities Monitor H&H (pre-op hgb 14.4, EBL 75ml) Continue incentive spirometry, PT/OT when appropriate DM II A1c 6.7 Hold home agents SSI while in-patient Glycemic consult ongoing and glucose is above goal this evening. Carb coverage was tightened today and lantus was increased by 20% Will continue to ose wtih these updated ranges and will add overnight checks to ensure good control by morning. Communicated with both primary RN and pharmacist regarding this plan. LE swelling Chronic condition. Currently not present. Uses lasix BID PRN at home. Denies h/o CHF diagnosis. Hold lasix for now. Patient reports actually taking Lasix only 1-2 times per week. RLS Ropinirole HS Depression Anxiety Continue fluoxetine, hydroxyzine. Hold zolpidem HS while receiving narcotics Hyperlipidemia Continue statin HÉCTOR CPAP intolerant Current smoker Nicotine patch Discussed importance of cessation PCP: Jamie Dispo: Per primary service Thank you for this consultation. We will follow the patient with you during their hospital stay. You can reach a member of the [facility]ist Team 20/09 via [employer]. Shirin Taylor, [facility]ist Admission and Anticipated Discharge Date Admission Date: January 20, 2022 Subjective 51 yo F s/p lumber surgery Pain still present today She is trying to use less narcotics She was walking around today more MILENA drain in place. She is denying any chest pain, SOB or other issues. Review of Systems Review of Systems: All systems reviewed negative except as indicated above. Physical Exam Physical Exam: CONSTITUTIONAL: WNWD, vitals as above, generally well- appearing, NAD EYES: normal conjunctivae, no scleral icterus ENT: external ear and nose normal, MMM NECK: trachea midline, RESPIRATORY: clear to auscultation bilaterally, no crackles, rales or wheezes, normal respiratory effort CARDIOVASCULAR: regular rate and rhythm, S1 and 2 heard without murmurs, gallops or rubs, no JVD, no peripheral edema CHEST: inspection of chest was normal GASTROINTESTINAL: soft, nontender, ND, no guarding MUSCULOSKELETAL: strength 5/5 throughout, head is normocephalic and atraumatic, extremities are NVI SKIN: warm and dry, incision site not evaluated-covered with dressing. NEUROLOGIC: CN 2-12 grossly intact, no sensory deficit, normal cognition, normal speech, no tremor PSYCHIATRIC: alert cooperative and oriented to person, place and time. Euthymic mood, makes good eye contact, language grossly intact, recent and remote memory grossly intact. Results & Data Results & Data ([facility]) Vital Signs (Past 12 Hours) Vital Signs Temp Pulse Resp BP Pulse Ox O2 Del Method 01/22/22 14:58 36.7 C 83 16 103/66 99 Room Air 01/22/22 07:53 36.7 C 74 16 108/70 96 Room Air Medications Administered Current Inpatient Medications Acetaminophen (Acetaminophen 500 Mg Tab) 1,000 mg PO Q8H PRN PRN Reason: MILD Pain Scale 1,2,3 & Pre PT Stop: 02/19/22 14:00 Last Admin: 01/21/22 07:56 Dose: 1,000 mg Al Hydrox/Mg Hydrox/Simethicone (Aluminum/Magnesium Susp 30 Ml Udc) 30 ml PO Q6H PRN PRN Reason: Dyspepsia Stop: 02/19/22 14:00 Atorvastatin Calcium (Atorvastatin 10 Mg Tab) 10 mg PO HS SILVIO Stop: 02/19/22 20:59 Last Admin: 01/21/22 20:21 Dose: 10 mg Bisacodyl (Bisacodyl 10 Mg Supp) 10 mg DC DAILY PRN PRN Reason: Constipation Stop: 02/19/22 14:00 Cyanocobalamin (Cyanocobalamin (B-12) 500 Mcg Tablet) 1,000 mcg PO HS SILVIO Stop: 02/19/22 20:59 Last Admin: 01/21/22 20:20 Dose: 1,000 mcg Dextrose (Dextrose 50% 50 Ml Syringe) 25 - 50 ml IV UD PRN; Protocol PRN Reason: Hypoglycemia Protocol Stop: 02/19/22 14:14 Diphenhydramine HCl (Diphenhydramine Capsule 25 Mg Cap) 25 mg PO Q6H PRN PRN Reason: Allergic Rhinitis/Insomnia Stop: 02/19/22 14:00 Famotidine (Famotidine 20 Mg Tab) 20 mg PO Q12H PRN PRN Reason: Dyspepsia Stop: 02/19/22 14:00 Fluoxetine HCl (Fluoxetine Hcl 20 Mg Cap) 40 mg PO HS [facility] Stop: 02/19/22 20:59 Last Admin: 01/21/22 20:21 Dose: 40 mg Gabapentin (Gabapentin 600 Mg Tab) 600 mg PO [facility] Stop: 02/19/22 20:59 Last Admin: 01/21/22 20:21 Dose: 600 mg Glucagon (Glucagon For Inj 1 Mg Vial) 1 mg IM UD PRN; Protocol PRN Reason: Hypoglycemia Protocol Stop: 02/19/22 14:14 Glucose (Glucose 40% Gel 15 Gm Tube) 15 - 30 gm PO UD PRN; Protocol PRN Reason: Hypoglycemia Protocol Stop: 02/19/22 14:14 Glucose (Glucose 10 Tab/Tube) 4 - 8 tab PO UD PRN; Protocol PRN Reason: Hypoglycemia Protocol Stop: 02/19/22 14:14 Hydromorphone HCl (Hydromorphone Inj 0.5 Mg/0.5 Ml Syr) 0.5 mg IV Q3H PRN PRN Reason: MODERATE Pain (Scale 4,5,6) & Pre PT Stop: 02/03/22 14:00 Hydromorphone HCl (Hydromorphone Inj 1 Mg/Ml Syringe) 1 mg IV Q3H PRN PRN Reason: SEVERE Pain (Scale 7,8,9,10) Stop: 02/03/22 14:00 Last Admin: 01/21/22 01:17 Dose: 1 mg Hydroxyzine HCl (Hydroxyzine Hcl 25 Mg Tab) 25 mg PO BID SILVIO Stop: 02/19/22 20:59 Last Admin: 11/25/22 09:49 Dose: 25 mg Hydroxyzine HCl (Hydroxyzine Hcl 25 Mg Tab) 25 mg PO Q8H PRN PRN Reason: Anxiety Stop: 02/19/22 14:00 Promethazine HCl 12.5 mg/ (Sodium Chloride) 50.5 mls @ 202 mls/hr IV Q6H PRN PRN Reason: Nausea &/or Vomiting Stop: 02/19/22 14:00 Lorazepam 0.5 mg/ Syringe 0.5 mls @ 2 mls/min IV Q8H PRN PRN Reason: Sedation/Anxiety Stop: 02/19/22 14:00 Dexamethasone 6 mg/ Syringe 1.5 mls @ 1 mls/min IV DAILY [facility] Stop: 01/23/22 09:02 Last Admin: 01/22/22 09:50 Dose: 1 mls/min Insulin Aspart (Insulin Aspart Per Unit) 0 units SC ACHS [facility]; Protocol Stop: 02/19/22 14:29 Last Admin: 01/22/22 12:46 Dose: 13 units Insulin Glargine (Lantus Per Unit Charge) 25 units SQ DAILY [facility]; Protocol Stop: 01/23/22 09:01 Last Admin: 01/22/22 10:00 Dose: 25 units Lorazepam (Lorazepam 0.5 Mg Tab) 0.5 mg PO Q8H PRN PRN Reason: Sedation/Anxiety Stop: 02/19/22 14:00 Magnesium Hydroxide (Magnesium Hydroxide Susp 30 Ml Udc) 30 ml PO Q24H PRN PRN Reason: Constipation Stop: 02/19/22 14:00 Metoclopramide HCl (Metoclopramide Hcl Inj 5 Mg/Ml 2 Ml Vial) 10 mg IV Q6H PRN PRN Reason: Nausea &/or Vomiting Stop: 02/19/22 14:00 Miscellaneous (Carbohydrates For Hypoglycemia ) 15 - 30 gm PO UD PRN PRN Reason: Hypoglycemia Treatment Stop: 02/19/22 14:14 Miscellaneous (Remove Nicoderm Patch) 1 each N/A DAILY@0859 [facility] Stop: 02/20/22 08:58 Last Admin: 01/22/22 09:50 Dose: 1 each Miscellaneous Information (Pharmacy Glycemic Mgmt Consult) 1 each N/A UD PRN PRN Reason: Consult Stop: 02/19/22 14:00 Naloxone HCl (Naloxone Hcl 0.4 Mg/1 Ml Vial/Carp) 0.1 mg IV Q5M PRN PRN Reason: Oversedation/Resp depression Stop: 02/19/22 14:00 Nicotine (Nicotine 21 Mg/24 Hr Tdsy) 21 mg TD QAM SILVIO Stop: 02/19/22 17:29 Last Admin: 01/22/22 09:49 Dose: 21 mg Ondansetron HCl (Ondansetron Inj 2 Mg/Ml 2 Ml Vial) 4 mg IV Q6H PRN PRN Reason: Nausea &/or Vomiting Stop: 02/19/22 14:00 Ondansetron HCl (Ondansetron 4 Mg Od Tab) 4 mg PO Q6H PRN PRN Reason: Nausea Stop: 02/19/22 14:00 Oxycodone HCl (Oxycodone Hcl Ir 5 Mg Tab (Immediate Release)) 5 - 10 mg PO Q4H PRN PRN Reason: Pain & Pre PT Stop: 02/03/22 14:00 Last Admin: 01/22/22 10:09 Dose: 10 mg Ropinirole HCl (Ropinirole Hcl 0.25 Mg Tablet) 0.5 mg PO [facility] Stop: 02/19/22 20:59 Last Admin: 01/21/22 20:21 Dose: 0.5 mg Senna/Docusate Sodium (Docusate Sodium/Senna 50/8.6mg Tab) 2 tab PO HS [facility] Stop: 02/19/22 20:59 Last Admin: 01/21/22 20:21 Dose: 2 tab Sodium Biphosphate/Sodium Phosphate (Sod Phosphate/Sod Biphosphate Enema 132 Ml Btl) 132 ml DC ONE PRN PRN Reason: Constipation Stop: 02/19/22 14:00 Tramadol HCl (Tramadol Hcl 50 Mg Tablet) 50 - 100 mg PO Q4H PRN PRN Reason: Moderate-Severe pain & Pre PT Stop: 02/19/22 14:00 Zolpidem Tartrate (Zolpidem Tartrate 10 Mg Tab) 10 mg PO HS [facility] Stop: 02/19/22 20:59
[2022-01-22] MEDS ORDERED: POLYETHYLENE (MIRALAX) 17 GM PACK PO PRN (19:27)
[2022-01-22] MEDS: ACETAMINOPHEN 500 MG TAB PO PRN (20:01)
[2022-01-22] MEDS: DOCUSATE SODIUM/SENNA 50/8.6MG TAB PO SCH (20:02)
[2022-01-22] MEDS: GABAPENTIN 600 MG TAB PO SCH (20:02)
[2022-01-22] MEDS: ATORVASTATIN 10 MG TAB PO SCH (20:03)
[2022-01-22] MEDS: CYANOCOBALAMIN (B-12) 500 MCG TABLET PO SCH (20:03)
[2022-01-22] MEDS: FLUoxetine HCL 20 MG CAP PO SCH (20:03)
[2022-01-22] MEDS: rOPINIRole HCL 0.25 MG TABLET PO SCH (20:04)
[2022-01-22] MEDS ORDERED: FLUARIX QUADRIVALENT 0.5 ML SYR IM ONE (22:38)
[2022-01-22] MEDS ORDERED: PNEUMOCOCCAL POLYSACCHARIDES 25 MCG/0.5 ML VIAL/SYR IM ONE (22:38)
[2022-01-23] MEDS: INSULIN ASPART PER UNIT SC SCH ×3 (00:35→09:54)
[2022-01-23] MEDS: ACETAMINOPHEN 500 MG TAB PO PRN (05:48)
[2022-01-23 06:46] LABS: Hematocrit (blood only) 34.8 % (34.1-44.9); Mean Corpuscular Hemoglobin 30.6 pg (25.0-34.0); Mean Corpuscular Hgb Conc 34.5 g/dL (32.0-36.0); Mean Corpuscular Volume 88.8 fL (80.0-100.0); Mean Platelet Volume 9.2 fL (9.4-12.3); Platelet Count 333 K/uL (130-400); RDW Standard Deviation 42.5 fL (36.4-46.3); Red Blood Count 3.92 M/uL (3.93-5.22); White Blood Count 15.81 K/ul (4.8-10.8)
[2022-01-23 07:23] LABS: BUN Creatinine Ratio 23.1 (10-20); Calcium 9.3 mg/dl (8.5-10.1); Creatinine Clr Calc Pharmacy 109.5 ml/min; Est GFR (African American) 119.1 ml/min; Est GFR (Non-African American) 102.8 ml/min
[2022-01-23] MEDS: oxyCODONE HCL IR 5 MG TAB (IMMEDIATE RELEASE) PO PRN ×2 (08:17→12:24)
[2022-01-23] MEDS: hydrOXYzine HCl 25 MG TAB PO SCH (08:18)
[2022-01-23] MEDS: dexAMETHasone 6 MG in SYRINGE 0 ML IV SCH (08:18)
--- NOTE | 2022-01-23 09:01 | Discharge Summary ---
Date of Service January 23, 2022 Admission HPI Per Admitting Provider This is a 51-year-old female who presents with chronic persistent back and leg pain. Failed extensive course of nonoperative care. For surgical invention. Principal Diagnosis Lumbar spinal stenosis with neurogenic claudication Discharge Data Allergies Allergy/AdvReac Type Severity Reaction Status Date / Time cinnamon Allergy Intermediate Hives Verified 01/20/22 07:22 Consultations 01/20/22 14:01 Consult Hospitalist Routine Procedures Performed Operation Date: 01/19/22 12:00 <No data on this case meets the specified criteria> Operation Date: 01/20/22 09:05 Actual Procedures p L4-S1 Decompression and Fusion, Spinal Cord Monitoring(Not Applicable) - Pradip Gilliam DO Ordered Studies 01/20/22 09:05 FL lumbar spine 2-3V Routine Hospital Course (1) Neurogenic claudication due to lumbar spinal stenosis: Patient 1 lumbar decompression fusion tolerated this well was taken to the orthopedic floor sublingual postop day 1 she was up and ambulating progressed to postop day 2 on postop day 3 MILENA drain had just decreased appropriately. Excellent strength testing. Pain well controlled. Subsequently discharged home. Discharge orders and instructions on the chart for further review. Total Time Total Time Spent Total Time Spent (In Minutes): 20 minutes Discharge Plan Discharge Items Patient Disposition: Home - Self-Care Reason For Visit: Spinal Stenosis, Lumbar Region without Neurogenic Discharge Diagnosis: Lumbar spinal stenosis with neurogenic claudication Activity: As commented below Non-emergency contact: Primary Care Provider Call non-emergency contact if: you have any medication questions Follow-up/Referrals: Brett Ayala [Primary Care Provider] - Diet: Regular Addtl Attending Provider Instructions: ACTIVITY RECOMMENDATIONS: SELF CARE INSTRUCTIONS AFTER THORACIC/LUMBAR FUSIONS 1. You may walk to your tolerance. It is good exercise for your legs and back. Expect some back and intermittent leg aches and pains. 2. You may perform "counter-top" level activities (make a sandwich, ratna with a project, etc.). 3. No bending or lifting of more than 10 pounds or back twisting of any nature (roll like a log when turning in bed). 4. You may ride in a car for 20-30 minutes at a time. No driving until after your first visit with your doctor. 5. Frequent changes of position and restricting sitting to 30 minutes at a time will help limit the amount of back spasms and stiffness you may experience. 6. You may discontinue the use of ambulatory aids (cane, crutches, etc.) once your strength and confidence allow. 7. You may cutting room supervisor the shower and let water strike your incision when you arrive home at least once daily. Do not take a tub bath, sit in a hot tub or go into a swimming pool until after your first recheck in the office. SPECIAL CARE INSTRUCTIONS: VERY IMPORTANT TO READ AND REVIEW A. Your surgical incision has been closed with a cosmetic suture under the skin that will dissolve in about 6 weeks. In 14 days, you can use a pair of clean scissors and cut the suture that is left outside of the skin at the ends of your incision. 1. The small skin tapes can be removed 7 days after surgery if they have not fallen off by that point. 2. You may keep the wound open to air as much as possible to promote healing after post-op day number 5 unless told otherwise by your doctor. 3. If you think the wound looks like it is becoming infected (redness or worsening drainage) and/or you are experiencing fever, chill or worsening back pain and muscle spasms, contact the office so that we may evaluate you as soon as possible. B. Complications are uncommon, but please contact us if you have any signs or symptoms of: 1. wound infection (fever higher than 102.5 degrees F, redness, separation of wound, drainage, or increasing pain from the incision) 2. blood clots in legs (pain, swelling, redness and warmth in legs) 3. urinary tract infection (fever higher than 102.5 degrees F, burning upon urination or increased frequency of urination) 4. nerve problems (inability to walk on your toes or heels, numbness, loss of bowel or bladder control) 5. any other symptoms that concern you C. Please call the office at if you have any concerns or questions about your operation or recovery. D. No smoking! Smoking drastically decreases the chance of a solid fusion. E. Do not take any anti-inflammatory medications (Indocin, Advil, Motrin, Aspirin, Naprosyn, etc.) as these may inhibit the chance of a solid fusion. Tylenol is okay to take for pain. MANAGING PAIN AFTER SPINAL SURGERY 1. Narcotic medication is intended for short-term use and will be provided for surgical pain. Surgical pain usually lasts for a period of 4-6 weeks. Narcotic medication includes Percocet, Vicodin, Darvocet, Tylenol #3 or Lortab. 2. Longer-term pain is more appropriately treated with non-narcotic medication such as Tylenol ES. 3. Muscle spasm is not appropriately treated with narcotics. Muscle relaxers such as Soma, Flexeril or Skelaxin can be used along with Tylenol ES. 4. Remember that we all live with some "aches and pains". This is not unusual or uncommon after an injury or as we get older. a. Back pain is expected and may include muscle spasms for 4 to 6 weeks after surgery. The pain should gradually improve. If the pain worsens for no apparent reason, please contact the office. b. Intermittent leg pain may also be experienced and should not be concerned about unless it worsens for no apparent reason. If so, please contact the office. 5. We will provide appropriate medication within the normal guidelines of their prescribed use. We will also be very cautious and aware of potential abuse and extended duration of patients' medication needs. a. Pain medications are for your comfort and to assist with sleep and rest so that the tissue can heal. They are not provided in order to return to normal activity and should not be used through the day. To do so or worsening pain at night can result from ongoing tissue damage and development of tolerance to the prescribed medicine. 6. Please allow 2-3 days to process refills. Prescriptions will not be mailed but must be picked up at the office. FOLLOW UP VISIT: Keep your scheduled follow-up appointment. Any questions, please call the office at . Pending Studies at Discharge: No Stand-Alone Forms: My [employer]TALK, Smoking Cessation Medications and DC Order Prescriptions: New tramadol 50 mg tablet 50 mg PO Q6H PRN (Reason: pain, moderate) Qty: 30 0RF oxycodone 5 mg tablet 5 mg PO Q6H PRN (Reason: pain, severe) Qty: 30 0RF Continued fluoxetine 40 mg Capsule 40 mg PO HS Rx Instructions: administer in the morning and at noon/midday furosemide [Lasix] 40 mg Tablet 40 mg PO DAILY PRN (Reason: leg swelling ) atorvastatin 10 mg Tablet 10 mg PO HS metformin 1,000 mg Tablet 1,000 mg PO BID ropinirole 0.5 mg Tablet 0.5 mg PO HS hydroxyzine HCl 25 mg Tablet 25 mg PO BID zolpidem [Ambien] 10 mg Tablet 10 mg PO HS gabapentin 600 mg Tablet 600 mg PO HS Label Comments: PT STATES RX TID BUT ONLY TAKES HS cholecalciferol (vitamin D3) [Vitamin D3] 125 mcg (5,000 unit) Tablet 125 mcg PO HS Trulicity 1.5 mg/0.5 mL Pen Injector 1.5 mg SUBCUT WK Label Comments: TAKE TUESDAY cyanocobalamin (vitamin B-12) 1,000 mcg Capsule 1,000 mcg PO HS Discontinued meloxicam 15 mg Tablet 15 mg PO DAILY Discharge Orders: Discharge Order (Routine); Ordered 01/23/22 Ordered By: Pradip Wilkes/Other Patient Handouts: Quit Smoking Aids Help Kick Habit, Planning to Quit Smoking, Staying Smoke-Free, The Benefits of Living Smoke Free Admission Data Admit Date/Time: 01/20/22 12:26 Attending Provider: Pradip Gilliam Admit Provider: Pradip Gilliam Primary Care Provider: Brett Ayala Other Providers: Shirin Taylor
[2022-01-23] MEDS: NICOTINE 21 MG/24 HR TDSY TD SCH (09:20)
[2022-01-23] MEDS: LANTUS PER UNIT CHARGE SQ SCH (09:55)
== END 2022-01-23 12:49 | disposition home or self-care (01) | DRG 455 ==
LOC: ASU 07:00 → 3E 12:26
DX: Z86.16 Personal history of COVID-19; F32.A Depression, unspecified; M48.062 Spinal stenosis, lumbar region with neurogenic claudication; E78.5 Hyperlipidemia, unspecified; R60.0 Localized edema; E11.42 Type 2 diabetes mellitus with diabetic polyneuropathy; Z79.899 Other long term (current) drug therapy; Z79.84 Long term (current) use of oral hypoglycemic drugs; Z79.85 Long-term (current) use of injectable non-insulin antidiabetic drugs; Z79.1 Long term (current) use of non-steroidal anti-inflammatories (NSAID); F41.9 Anxiety disorder, unspecified; G25.81 Restless legs syndrome; Z91.018 Allergy to other foods; G47.33 Obstructive sleep apnea (adult) (pediatric); Z20.822 Contact with and (suspected) exposure to COVID-19; F17.210 Nicotine dependence, cigarettes, uncomplicated

== ENCOUNTER 2025-01-21 06:09 | Observation (INO) ==
--- NOTE | 2024-12-11 15:07 | PAT Medication Instructions ---
Medication Instructions Date of Service December 11, 2024 Home Medications Medication Instructions Recorded oxycodone 5 mg tablet 5 mg PO Q6H PRN pain, severe #30 01/21/22 tabs tramadol 50 mg tablet 50 mg PO Q6H PRN pain, moderate 01/21/22 #30 tabs atorvastatin 10 mg tablet 10 mg PO HS cholecalciferol (vitamin D3) 125 mcg (5,000 unit) tablet (Vitamin D3) 125 mcg PO HS cyanocobalamin (vitamin B-12) 1,000 mcg capsule 1,000 mcg PO HS fluoxetine 40 mg capsule 40 mg PO HS furosemide 40 mg tablet (Lasix) 40 mg PO DAILY PRN leg swelling gabapentin 600 mg tablet 600 mg PO HS hydroxyzine HCl 25 mg tablet 25 mg PO HS metformin 1,000 mg tablet 1,000 mg PO BID ropinirole 0.5 mg tablet 0.5 mg PO HS zolpidem 10 mg tablet (Ambien) 10 mg PO HS oxycodone 5 mg tablet 5 mg PO Q6H PRN pain, severe tramadol 50 mg tablet 50 mg PO Q6H PRN pain, moderate empagliflozin 10 mg tablet (Jardiance) 10 mg PO HS gemfibrozil 600 mg tablet 600 mg PO HS semaglutide 1 mg/dose (4 mg/3 mL) subcutaneous pen injector (Ozempic) 2 mg subcut WK DO NOT take the morning of surgery furosemide 40 mg tablet (Lasix) 40 mg PO DAILY PRN leg swelling metformin 1,000 mg tablet 1,000 mg PO BID Take morning of surgery With a small sip of water, OTHERWISE NOTHING TO EAT OR DRINK AFTER MIDNIGHT: oxycodone 5 mg tablet 5 mg PO Q6H PRN pain, severe (if needed) tramadol 50 mg tablet 50 mg PO Q6H PRN pain, moderate (if needed) Take evening before surgery atorvastatin 10 mg tablet 10 mg PO HS cholecalciferol (vitamin D3) 125 mcg (5,000 unit) tablet (Vitamin D3) 125 mcg PO HS cyanocobalamin (vitamin B-12) 1,000 mcg capsule 1,000 mcg PO HS fluoxetine 40 mg capsule 40 mg PO HS furosemide 40 mg tablet (Lasix) 40 mg PO DAILY PRN leg swelling (if needed) gabapentin 600 mg tablet 600 mg PO HS hydroxyzine HCl 25 mg tablet 25 mg PO HS metformin 1,000 mg tablet 1,000 mg PO BID ropinirole 0.5 mg tablet 0.5 mg PO HS zolpidem 10 mg tablet (Ambien) 10 mg PO HS oxycodone 5 mg tablet 5 mg PO Q6H PRN pain, severe (if needed) tramadol 50 mg tablet 50 mg PO Q6H PRN pain, moderate (if needed) STOP taking 3 days before surgery empagliflozin 10 mg tablet (Jardiance) 10 mg PO HS STOP 7 days prior to surgery semaglutide 1 mg/dose (4 mg/3 mL) subcutaneous pen injector (Ozempic) 2 mg subcut WK Do NOT take day before surgery and do NOT take morning of surgery gemfibrozil 600 mg tablet 600 mg PO HS Other Notes If you have any questions please call us at [phone] or [phone] or [phone] or [phone]
--- NOTE | 2024-12-17 13:05 | Anesthesiology Consultation ---
Date of Service December 17, 2024 Assessment & Plan (1) Encounter for pre-operative examination: - Check BSG DOS - Infectious disease screening: Per assessment on 12/17/24- No known recent infectious disease contacts or current infectious disease symptoms. - GLP-1 medication instructions: Patient informed by PAT to stop 7 days prior to surgery- voiced understanding. DOS 01/21. Advised last dose to be 01/10. - Acceptable risk for surgery pending surgeon-ordered PCP preop evaluation (Dr. Ayala, appt 12/31). Chart Review Chart Review: Patient seen in Pre Admission Testing Teaching & Discussion Pre-Anesthesia Teaching/Discussion Notes: Instructed NPO after midnight before surgery,except medications with 15 cc of water. Medication instructions provided according to the PAT guidelines. History Surgery Operation Date: 01/21/25 07:45 Proposed Procedures p Exploration L4-S1 Fusion, Decompression L3-L4, Fusion L3-S1, Possible Hardware Removal L4-S1 - Pradip Gilliam, DO Height/Weight Height: 5 ft 5 in Weight: 70.4 kg Allergies Allergy/AdvReac Type Severity Reaction Status Date / Time cinnamon Allergy Intermediate Hives Verified 12/10/24 11:21 Medications Home Medications Medication Instructions Recorded Confirmed Last Taken atorvastatin 10 mg tablet 10 mg PO HS 12/25/21 12/10/24 01/19/22 21:00 cholecalciferol (vitamin D3) 125 125 mcg PO HS 12/25/21 12/10/24 01/19/22 21:00 mcg (5,000 unit) tablet (Vitamin D3) cyanocobalamin (vitamin B-12) 1,000 mcg PO HS 12/25/21 12/10/24 01/19/22 21:00 1,000 mcg capsule fluoxetine 40 mg capsule 40 mg PO HS 12/25/21 12/10/24 01/19/22 21:00 furosemide 40 mg tablet (Lasix) 40 mg PO DAILY PRN leg swelling 12/25/21 12/10/24 Unknown gabapentin 600 mg tablet 600 mg PO HS 12/25/21 12/10/24 01/19/22 21:00 hydroxyzine HCl 25 mg tablet 25 mg PO HS 12/25/21 12/10/24 01/20/22 04:30 metformin 1,000 mg tablet 1,000 mg PO BID 12/25/21 12/10/24 01/19/22 21:00 ropinirole 0.5 mg tablet 0.5 mg PO HS 12/25/21 12/10/24 01/19/22 21:00 zolpidem 10 mg tablet (Ambien) 10 mg PO HS 12/25/21 12/10/24 01/19/22 21:00 oxycodone 5 mg tablet 5 mg PO Q6H PRN pain, severe #30 01/21/22 12/10/24 Unknown tabs tramadol 50 mg tablet 50 mg PO Q6H PRN pain, moderate 01/21/22 12/10/24 Unknown #30 tabs empagliflozin 10 mg tablet 10 mg PO HS 12/10/24 12/10/24 Unknown (Jardiance) gemfibrozil 600 mg tablet 600 mg PO HS 12/10/24 12/10/24 Unknown semaglutide 1 mg/dose (4 mg/3 mL) 2 mg subcut WK 12/10/24 12/10/24 Unknown subcutaneous pen injector (Ozempic) Past Medical History Medical History Degenerative disc disease Depression Diabetes mellitus, type 2 History of COVID-19 05/2019 Hx of gout Hyperlipidemia Migraine Peripheral neuropathy Restless leg syndrome Sleep apnea No device Spinal stenosis Swelling of lower extremity Per records; reason for lasix Exercise / Class Metabolic Activity II 4-5 Yardwork/Stairs/Walk up hill (one FS: No CP, no SOB) Past Family History Family History Other No family history of adverse response to anesthesia Past Surgical History Surgical History H/O elbow surgery Left x2 (nerve repair) H/O total hysterectomy History of appendectomy History of cholecystectomy History of colonoscopy History of tonsillectomy and adenoidectomy Nausea and vomiting after administration of anesthetic agent S/P lumbar microdiscectomy S/P spinal surgery L4-S1 decompression/fusion: Grade 2 view, MAC 3.0, ETT 7.0, atraumatic, [facility] (01/19/22) [place] teeth removed Past Anesthesia History No Hx of Anesthesia Complications and No Family Hx of Anesthesia Complications History of PONV No Hx of Motion Sickness and History of PONV Social History Smoking Status: Former smoker tobacco type: cigarettes Do You Dip or Chew Tobacco: No Smoking End Date: 11/28/24 Hx Alcohol Use: Yes alcohol intake frequency: holidays/special occasions only Hx Substance Use: No substance use type: does not use Review of Systems Patient denies chest pain, shortness of breath, dyspnea on exertion, fever, chills, cough, wheezing, palpitations. Physical Exam Vital Signs BP 101/70 P 87 TEMP 97.6 SP02 95%RA RESP 18 Physical Full cervical extension range of motion. Full TMJ range of motion. TMD > 3.5 finger breaths Mallampati Score II Dentition: several missing (sides/molars) Lungs: clear throughout to auscultation Cardiac: regular rate and rhythm, no murmurs noted Spine: normal Carotid arteries: negative bruit Extremities: no LE edema Lab Results Anesthesia Preop Results Results Anesthesia Widget: WBC 9.50 K/ul (4.8-10.8) 12/17/24 Hgb 13.9 g/dl (12.0-16.0) 12/17/24 Hct 42.1 % (37.0-47.0) 12/17/24 Plt 417 K/uL (130-400) H 12/17/24 Na 138 mmol/L (136-145) 12/17/24 K 4.1 mmol/L (3.5-5.1) 12/17/24 Cl 102 mmol/L (98-107) 12/17/24 CO2 28 mmol/L (21-32) 12/17/24 BUN 17 mg/dl (6-23) 12/17/24 Creat 0.84 mg/dl (0.6-1.2) 12/17/24 Glucose Level 128 mg/dl (70-99(Fasting)) H 12/17/24 PT 10.1 Seconds (9.0-12.0) 12/17/24 PTT 24 Seconds (21-31) 12/17/24 INR 1.0 (0.9-1.1) 12/17/24 HA1c 6.2 % (4.5-5.6) H 12/17/24 Urine Color Yellow 12/17/24 Urine Appearance Slightly Cloudy (Clear) 12/17/24 Urine pH 5.5 (4.5-7.5) 12/17/24 Urine Specific [place] 1.015 (1.000-1.030) 12/17/24 Urine Protein Negative (Negative) 12/17/24 Urine Glucose (UA) 3+ (Negative) H 12/17/24 Urine Ketones Negative (Negative) 12/17/24 Urine Blood Negative (Negative) 12/17/24 Urine Nitrite Negative (Negative) 12/17/24 Urine Bilirubin Negative (Negative) 12/17/24 Urine Urobilinogen Negative (Negative) 12/17/24 Urine Leukocyte Esterase Negative (Negative) 12/17/24 Blood Type O Positive 12/17/24 Antibody Screen NEGATIVE 12/17/24 Testing Laboratory Results Urine nicotine 12/17/24: Not detected Electrocardiogram Date: 12/17/24 NSR at 82bpm. LAD. RBBB. NS TWA. Chest X-Ray Date: 12/17/24 FINDINGS: The cardiac and mediastinal contours are normal. There is no failure. There is no focal pulmonary consolidation. There are no pleural effusions. There are surgical clips the right upper quadrant consistent with a prior cholecystectomy. IMPRESSION: No active disease in the chest.
[2025-01-21] MEDS: LR 60ML/HR IV SCH (06:42)
[2025-01-21] MEDS: LR 15ML/HR IV SCH (06:42)
[2025-01-21] MEDS: ACETAMINOPHEN 500 MG TAB PO SCH (06:42)
[2025-01-21] MEDS: GABAPENTIN 900 MG DOSE PO SCH (06:43)
[2025-01-21] MEDS: CeleBREX 200 MG CAP PO SCH (06:43)
[2025-01-21] MEDS ORDERED: PROPOFOL IV EMULSION 10 MG/ML 20 ML VIAL IV ONE (06:50)
[2025-01-21] MEDS ORDERED: ROCURONIUM BROMIDE 10 MG/ML 5 ML VIAL IV ONE ×2 (06:51→09:10)
[2025-01-21] MEDS ORDERED: LIDOCAINE 2% 2 ML VIAL/AMP(20MG/ML) INFIL ONE (06:53)
[2025-01-21] MEDS ORDERED: ONDANSETRON INJ 2 MG/ML 2 ML VIAL ONE (06:54)
[2025-01-21] MEDS ORDERED: MIDAZOLAM HCL 1 MG/ML 2ML VIAL ONE (06:55)
[2025-01-21] MEDS ORDERED: ONDANSETRON INJ 2 MG/ML 2 ML VIAL IV PRN ×2 (07:03→10:51)
[2025-01-21] MEDS ORDERED: ATROPINE SULFATE 0.1 MG/ML 10ML SYR IV PRN (07:03)
[2025-01-21] MEDS ORDERED: PROMETHAZINE HCL 6.25 MG in SODIUM CHLORIDE 0.9% 50 ML IV PRN (07:03)
[2025-01-21] MEDS ORDERED: HYDROmorphone INJ 2 MG/ML SYR/VIAL IV PRN (07:03)
--- NOTE | 2025-01-21 07:40 | History & Physical Bridge Note ---
Date of Service January 21, 2025 History & Physical Bridge Note I have examined the patient, reviewed the History & Physical and in the interval since the performance of the History & Physical I have noted the following changes of clinical significance: no changes noted
--- NOTE | 2025-01-21 07:42 | History & Physical Report ---
Date of Service January 21, 2025 Assessment & Plan (1) Other spondylosis with radiculopathy, lumbar region: Plan: Decompression fusion L3-L4 expiration of fusion L4-S1 removal of hardware L4-S1 fusion L3-S1 History of Present Illness Chief Complaint: Back and leg pain Primary Care Provider: Brett Ayala This is a 54-year-old female well-known to me that presents with persistent back and leg pain after failing course of nonoperative care is here for surgical invention. Allergies Allergy/AdvReac Type Severity Reaction Status Date / Time cinnamon Allergy Intermediate Hives Verified 01/21/25 06:14 Home Medications Medication Instructions Recorded Confirmed Type atorvastatin 10 mg tablet 10 mg PO HS 12/25/21 01/21/25 History cholecalciferol (vitamin D3) 125 125 mcg PO HS 12/25/21 01/21/25 History mcg (5,000 unit) tablet (Vitamin D3) cyanocobalamin (vitamin B-12) 1,000 mcg PO HS 12/25/21 01/21/25 History 1,000 mcg capsule fluoxetine 40 mg capsule 40 mg PO HS 12/25/21 01/21/25 History furosemide 40 mg tablet (Lasix) 40 mg PO DAILY PRN leg swelling 12/25/21 01/21/25 History gabapentin 600 mg tablet 600 mg PO HS 12/25/21 01/21/25 History hydroxyzine HCl 25 mg tablet 25 mg PO HS 12/25/21 01/21/25 History metformin 1,000 mg tablet 1,000 mg PO BID 12/25/21 01/21/25 History ropinirole 0.5 mg tablet 0.5 mg PO HS 12/25/21 01/21/25 History zolpidem 10 mg tablet (Ambien) 10 mg PO HS 12/25/21 01/21/25 History oxycodone 5 mg tablet 5 mg PO Q6H PRN pain, severe #30 01/21/22 01/21/25 Rx tabs empagliflozin 10 mg tablet 10 mg PO HS 12/10/24 01/21/25 History (Jardiance) gemfibrozil 600 mg tablet 600 mg PO HS 12/10/24 01/21/25 History semaglutide 1 mg/dose (4 mg/3 mL) 2 mg subcut WK 12/10/24 01/21/25 History subcutaneous pen injector (Ozempic) Past Med/Surg History Problem List (Updated 01/21/25 @ 07:41 by Pradip Gilliam DO) Other spondylosis with radiculopathy, lumbar region Neurogenic claudication due to lumbar spinal stenosis Diabetes mellitus, type 2 Depression Peripheral neuropathy Restless leg syndrome Hyperlipidemia Sleep apnea Medical History Degenerative disc disease Depression Diabetes mellitus, type 2 History of COVID-19 05/2019 Hx of gout Hyperlipidemia Migraine Peripheral neuropathy Restless leg syndrome Sleep apnea No device Spinal stenosis Swelling of lower extremity Per records; reason for lasix Surgical History H/O elbow surgery Left x2 (nerve repair) H/O total hysterectomy History of appendectomy History of cholecystectomy History of colonoscopy History of tonsillectomy and adenoidectomy Nausea and vomiting after administration of anesthetic agent S/P lumbar microdiscectomy S/P spinal surgery L4-S1 decompression/fusion: Grade 2 view, MAC 3.0, ETT 7.0, atraumatic, [facility] (01/19/22) [place] teeth removed Family History Other No family history of adverse response to anesthesia Social History Smoking Status: Former smoker Smoking End Date: 11/28/24; Second Hand Exposure: No; Do You Dip or Chew Tobacco: No; Tobacco Cessation Education Requested by Patient: No Hx Alcohol Use: Yes Hx Substance Use: No Preferred Language: Armenian Communication Ability: Effective Ticket Seller Required: No Beliefs That Will Affect Care: None marital status: Life Partner Current Living Situation: Significant Other Other Information That Helps Us Care for You: No Feels Safe at Home: Yes Safety Concerns: Feels Safe At This Time Assistive Devices: Glasses Physical Exam Physical Exam: Patient is alert and oriented heart regular rhythm lungs clear Results & Data Results & Data Vital Signs (Past 12 Hours) Vital Signs Temp Pulse Resp BP Pulse Ox O2 Del Method 01/21/25 06:19 36.7 C 83 20 131/86 99 Room Air
[2025-01-21] MEDS ORDERED: DEXAMETHASONE SOD INJ 4 MG/ML VIAL ONE ×2 (08:13)
[2025-01-21] MEDS ORDERED: HYDROmorphone INJ 2 MG/ML SYR/VIAL ONE (09:06)
[2025-01-21] MEDS ORDERED: SUGAMMADEX SODIUM 200 MG/2 ML VIAL IV ONE ×2 (09:23→09:32)
[2025-01-21] MEDS: BUPIVACAINE/EPINEPHRINE 0.25% 1:200,000 30 ML VIAL ONE (09:30)
[2025-01-21] MEDS: FLOSEAL HEMOSTATIC MATRIX 10ML TOP ONE (09:31)
[2025-01-21] MEDS: ceFAZolin 330 MG/ML 1 GM VIAL ONE (09:31)
--- NOTE | 2025-01-21 09:39 | Operative Report ---
Post Operative Report Pre & Post Diagnosis Operation Date: 01/21/25 07:45 Pre-Op Diagnosis: #1 lumbar spondylosis with radiculopathy #2 lumbar disc herniation with radiculopathy Post-Op Diagnosis: Same I identified the patient and participated in the time-out.: Yes Procedure Operation Date: 01/21/25 07:45 Actual Procedures #1 removal of posterior instrumentation L4-S1. #2 exploration of fusion L4-S1. #3 lumbar decompression with bilateral middle facetectomies and foraminotomies L3-L4. #4 posterior spinal fusion L3-L4. #5 placement posterior inst rumentation L3-S1 using camber. #6 interbody fusion L3-L4 per #7 placement of Spira 11 x 26 mm at L3-L4. #8 placement of Proteus combined with Koros bone graft in the posterior lateral gutters and os design interbody space. Surgeon Pradip Gilliam DO [facility] More Leary Estimated Blood Loss 50 Findings Consistent with Post-Op Diagnosis Specimens None Indications This is a 54-year-old female who presents by manage diagnosis of failing course of nonoperative care is here for surgical invention. Description of Procedure Patient was met with identified informed consent obtained. Patient was then taken to the operative suite underwent a patient placed in a prone position on the Wilbert table atop the Scott frame. All bony prominences well-padded eyes inspected to ensure no external pressure placed upon them. This point the lumbar spine was prepped and draped in normal sterile fashion. Sharp dissection with the assistance of Bovie guidance formed down to and exposing the lamina and transverse processes of L3 and instrumentation at L4-L5 and S1 levels bilaterally. I then proceeded to remove the hardware bilaterally explored the fusion mass noting it to be mature and intact. Then performed a complete laminectomy of L3 including bilateral medial facetectomies and foraminotomies as well as addressing the far lateral foraminal disc herniation at L3-L4 on the right. Pedicle screws were then placed in L3-L4 and S1 levels bilaterally with assistance of fluoroscopy. By way of transforaminal approach on the right a complete discectomy of L3-L4 was performed endplates curetted to subcortical bleeding bone and a 11 x 26 mm Spira cage filled with os design bone graft tapped in position. The rods were then compressed locked into final position bilaterally. The transverse processes of L3-L4 burred to subcortical bleeding bone. Proteus combined with Koros bone graft placed in the posterolateral gutt ers. Versa wrap placed over the exposed dura. 15 round MILENA drain inserted. The incision was then closed 1 Vicryl and fascia 2-0 Vicryl subcutaneously and 4 Monocryl for final skin closure. Steri-Strips sterile dressing placed. Patient waken taken to PACU in stable condition. Please note More Leary was present at the entire procedure by the patient positioning complex portion of the surgery a nd final skin closure. I attest to the content of the Intraoperative Record and any orders documented therein. Any exceptions are noted below.
--- NOTE | 2025-01-21 10:48 | Anesthesiology Progress Note ---
Date of Service January 21, 2025 Anesthesia Post Procedure Vital Signs Vital Signs: Temp Pulse Resp BP Pulse Ox O2 Del Method O2 Flow Rate 01/21/25 10:25 100 H 16 131/77 99 Nasal Cannula 3 01/21/25 10:15 36.7 C 100 H 12 136/77 96 Nasal Cannula 3 01/21/25 10:05 99 H 14 128/64 96 Oxymask 4 01/21/25 09:57 36.3 C L 99 H 16 130/77 97 Oxymask 6 01/21/25 06:19 36.7 C 83 20 131/86 99 Room Air Pain Intensity Lower Back: Pain Intensity: 8 Transfer of Care Handoff Completed per policy Notes Mental Status: alert / awake / arousable Patient Amnestic to Procedure: Yes Nausea / Vomiting: adequately controlled Pain: adequately controlled Airway Patency, RR, SpO2: stable & adequate BP & HR: stable & adequate Hydration State: stable & adequate Neuraxial Anesthesia: was administered and sensory block is resolving Anesthetic Complications: no major complications apparent and Pt Satisfied with anesthetic care
[2025-01-21] MEDS ORDERED: PHARMACY GLYCEMIC MGMT CONSULT PRN (10:51)
[2025-01-21] MEDS ORDERED: FUROSEMIDE 40 MG TAB PO PRN (10:51)
[2025-01-21] MEDS ORDERED: PROMETHAZINE 12.5 MG/50.5 ML BAG IV PRN (10:51)
[2025-01-21] MEDS ORDERED: FAMOTIDINE 20 MG TAB PO PRN (10:51)
[2025-01-21] MEDS ORDERED: METOCLOPRAMIDE HCL INJ 5 MG/ML 2 ML VIAL IV PRN (10:51)
[2025-01-21] MEDS ORDERED: MAGNESIUM HYDROXIDE SUSP 30 ML UDC PO PRN (10:51)
[2025-01-21] MEDS ORDERED: DO NOT ADMINISTER FLU VACCINE PRN (10:51)
[2025-01-21] MEDS ORDERED: DO NOT ADMINISTER PNEUMOCOCCAL VACCINE PRN (10:51)
[2025-01-21] MEDS ORDERED: ONDANSETRON 4 MG OD TAB PO PRN (10:51)
[2025-01-21] MEDS ORDERED: ALUMINUM/MAGNESIUM SUSP 30 ML UDC PO PRN (10:51)
[2025-01-21] MEDS ORDERED: ACETAMINOPHEN 500 MG TAB PO PRN (10:51)
[2025-01-21] MEDS ORDERED: LORazepam 0.5 MG TAB PO PRN (10:51)
[2025-01-21] MEDS ORDERED: NALOXONE HCL 0.4 MG/1 ML VIAL/CARP IV PRN (10:51)
[2025-01-21] MEDS ORDERED: ACETAMINOPHEN 1,000 MG/100 ML VIAL IV PRN (10:51)
[2025-01-21] MEDS ORDERED: diphenhydrAMINE Capsule 25 MG CAP PO PRN (10:51)
[2025-01-21] MEDS ORDERED: SOD PHOSPHATE/SOD BIPHOSPHATE ENEMA 132 ML BTL PR PRN (10:51)
[2025-01-21] MEDS ORDERED: HYDROmorphone INJ 0.5 MG/0.5 ML SYR IV PRN (10:51)
[2025-01-21] MEDS ORDERED: LORazepam Inj 0.5 MG in SYRINGE 0.25 ML IV PRN (10:51)
--- NOTE | 2025-01-21 10:51 | Fluoroscopy Report ---
FL lumbar spine 2-3V CLINICAL HISTORY: L4-S1 DECOMPRESSION/FUSION POSSIBLE HARDWARE REMOVAL COMPARISON STUDY: None FLUOROSCOPY TIME: 37 seconds FLUOROSCOPY IMAGES: 2 EXPOSURE DOSE: 37 mGy FINDINGS: Fluoroscopy was provided for lumbar surgery. IMPRESSION: Intraoperative fluoroscopy. ACT 112: Negative or not required by law. Electronically signed by: Bairon Sales M.D. 01/21/2025 10:50 AM
[2025-01-21] MEDS ORDERED: ePHEDrine sulfate 50 MG/5 ML SYR ONE (10:56)
[2025-01-21] MEDS: SODIUM CHLORIDE 0.9% 1,000 ML IV SCH (11:30)
--- NOTE | 2025-01-21 11:31 | Pharmacy Report ---
Pharmacy Glycemic Short Note 2 - Date of Service January 21, 2025 - Glycemic Short BSG Results (Last 24 hours): 01/21/25 01/21/25 06:20 10:02 POC Glucose 113 H 125 H OUTPATIENT ANTIDIABETIC REGIMEN: * Jardiance 10mg daily * Metformin 1000mg BID * Ozempic 2mg SQ weekly (last dose 01/10/25) * HbA1c: 6.2% (12/17/24) ASSESSMENT: * Sandra is a 54 year old female with T2DM who presents 01/21 for lumbar decompression and fusion * AM glucose was 113, repeat glucose around 1000 was 125 - both values within goal range * Patient received 8mg dexamethasone around 0800 pre-op * Patient to receive 6mg daily IV dexamethasone through 01/24 * Given glucose is still within range, will utilize sliding scale Lantus at 1600 glucose check to cover for anticipated increase in BSG from steroid use * Novolog for meal coverage in between stress level of 1 and 2 * Clear liquid, T2DM diet PLAN FOR INPATIENT GLYCEMIC CONTROL: * Hold outpatient diabetes medications * Basal insulin * Lantus scale SQ @1600 (0 units for BSG <180, 10 units for BSG >180) * Bolus insulin * NovoLog per scale ACHS or Q6hrs while NPO * Goal Range: Low 110 mg/dL - High 140 mg/dL * Correction Factor: 30 mg/dL/unit * Nutritional / Prandial insulin per carb ratio of 1 unit per 12 grams CHO consumed
[2025-01-21] MEDS: INSULIN ASPART PER UNIT CHARGE SC SCH (11:54)
--- NOTE | 2025-01-21 12:29 | Hospitalist Consultation ---
Date of Consultation January 21, 2025 Assessment & Plan (1) Other spondylosis with radiculopathy, lumbar region: (2) Diabetes mellitus, type 2: (3) Depression: (4) Restless leg syndrome: Plan Sandra is a 54F with a PMHx of former smoker (quit 11/2024), HTN, DMT2 and RLS who presents to the hospital for elective surgery with Dr. Gilliam. hospital medicine consulted for medical management, [facility] service intially consulted, but do not take patients insurance. #S/p Back surgery - S/p Exploration L4-S1 with hardware removal, L3-4 decompression, L3-S1 Fusion [address] Dr[address] Gilliam 01/21 Pain control / abx / drain management / dvt proh/ dispo per primary team EBL 50 AM CBC and BMP #DMT2 Home meds: Ozempic, metformin, Jardiance Pharmacy glycemic consult per primary team #Mental health Continue Ambien & hydroxyzine continue prozan #RLS - continue ropinirole #hx of HÉCTOR and HTN - no longer needing meds or CPAP after weight loss Thank you for allowing us to participate in the care of this patient, please reach out with any questions or concerns. Hospital medicine will continue to follow for AM labs. Supervising Physician Co-Signing Physician Notes Attending Attestation and Consult Note: Pt seen/examined, chart reviewed, consult care plan d/w [place] [place]. I agree w/ the camejo components of her consult documentation. 54yo female with HTN, T2DM, RLS, prior tobacco use, previous lumbar spine surgery. Presented today for lumbar surgery (L4-S1 hardware removal, L3/L4 decompression, L3-S1 fusion) by Dr Tomasz Gilliam. Minimal blood loss. I saw the patient post-op on the orthopedic floor. She denied chest pain, dyspnea, or abd pain/nausea/emesis. PMH/PSH/allergies/meds/sochx - reviewed VSS, afebrile gen - NAD, looks well neck - no JVD mouth - MMM heart - borderline tachycardic, s1 s2, no murmur lungs - CTA b/l abd - soft NT ND BS+ ext - no edema, pulses 2+ b/l A/P: 1. s/p lumbar decompression-fusion procedure by Dr Gilliam 2. HTN - BPs stable post-op; she is not on medicine for such at time of admission 3. T2DM - pharmacy glycemic team consulted for DM management; hold metformin, Ozempic, etc. 4. RLS - cont gabapentin, cont ropinirole Thank you for this consult. Our team will follow. Aftab Babcock MD History of Present Illness Reason for Consultation: medical management Requesting Physician: Dr. Gilliam Attending Physician: Pradip Gilliam, DO History of Present Illness Sandra is a 54F with a PMHx of former smoker (quit 11/2024), HTN, DMT2 and RLS who presents to the hospital for elective surgery with Dr. Gilliam. Seen post operatively with family at bedside. Reports tolerating clear liquids without issue. Denies pain, but has not been moving yet. Pain prior to surgery was mainly in her back, no radiation down to her legs. No long on meds for HTN or needing a CPAP reports this imporvement after weight loss Last BM 01/20 Allergies Allergy/AdvReac Type Severity Reaction Status Date / Time cinnamon Allergy Intermediate Hives Verified 01/21/25 06:14 Home Medications Medication Instructions Recorded Confirmed Type atorvastatin 10 mg tablet 10 mg PO HS 12/25/21 01/21/25 History cholecalciferol (vitamin D3) 125 125 mcg PO HS 12/25/21 01/21/25 History mcg (5,000 unit) tablet (Vitamin D3) cyanocobalamin (vitamin B-12) 1,000 mcg PO HS 12/25/21 01/21/25 History 1,000 mcg capsule fluoxetine 40 mg capsule 40 mg PO HS 12/25/21 01/21/25 History furosemide 40 mg tablet (Lasix) 40 mg PO DAILY PRN leg swelling 12/25/21 01/21/25 History gabapentin 600 mg tablet 600 mg PO HS 12/25/21 01/21/25 History hydroxyzine HCl 25 mg tablet 25 mg PO HS 12/25/21 01/21/25 History metformin 1,000 mg tablet 1,000 mg PO BID 12/25/21 01/21/25 History ropinirole 0.5 mg tablet 0.5 mg PO HS 12/25/21 01/21/25 History zolpidem 10 mg tablet (Ambien) 10 mg PO HS 12/25/21 01/21/25 History oxycodone 5 mg tablet 5 mg PO Q6H PRN pain, severe #30 01/21/22 01/21/25 Rx tabs empagliflozin 10 mg tablet 10 mg PO HS 12/10/24 01/21/25 History (Jardiance) gemfibrozil 600 mg tablet 600 mg PO HS 12/10/24 01/21/25 History semaglutide 1 mg/dose (4 mg/3 mL) 2 mg subcut WK 12/10/24 01/21/25 History subcutaneous pen injector (Ozempic) oxycodone 5 mg tablet 5 mg PO Q6H PRN pain #30 tabs 01/21/25 Rx Patient History Medical History Degenerative disc disease Depression Diabetes mellitus, type 2 History of COVID-19 05/2019 Hx of gout Hyperlipidemia Migraine Peripheral neuropathy Restless leg syndrome Sleep apnea No device Spinal stenosis Swelling of lower extremity Per records; reason for lasix Surgical History H/O elbow surgery Left x2 (nerve repair) H/O total hysterectomy History of appendectomy History of cholecystectomy History of colonoscopy History of tonsillectomy and adenoidectomy Nausea and vomiting after administration of anesthetic agent S/P lumbar microdiscectomy S/P spinal surgery L4-S1 decompression/fusion: Grade 2 view, MAC 3.0, ETT 7.0, atraumatic, [facility] (01/19/22) [place] teeth removed Family History Other No family history of adverse response to anesthesia Social History Smoking Status: Former smoker Second Hand Exposure: No; Do You Dip or Chew Tobacco: No; Hx Alcohol Use: Yes Hx Substance Use: No Preferred Language: German Communication Ability: Effective Chief Telephone Operator Required: No Beliefs That Will Affect Care: None marital status: Life Partner Current Living Situation: Significant Other Feels Safe at Home: Yes Assistive Devices: Walker Review of Systems Review of Systems: All systems reviewed & are unremarkable except as noted in Subjective Physical Exam Physical Exam: General: NAD, VS as above Resp: normal respiratory effort, lungs clear to auscultation anteriorly CV: RRR, no murmur, Abd: normal bowel sounds, non tender, soft Back: MILENA brain in place Extremities: Moves all extremities, able to wiggle toes bilaterally, SCDs in place Neuro: A&O x3, Results & Data Results & Data Vital Signs (Past 12 Hours) Vital Signs Temp Pulse Pulse Resp BP Pulse Ox O2 Del Method 01/21/25 11:43 98.1 F 106 H 17 113/70 95 Room Air 01/21/25 11:12 97.3 F L 102 H 17 117/74 95 Room Air 01/21/25 10:45 97.9 F 104 H 17 126/75 95 Room Air 01/21/25 10:25 100 H 16 131/77 99 Nasal Cannula 01/21/25 10:15 98.1 F 100 H 12 136/77 96 Nasal Cannula 01/21/25 10:05 99 H 14 128/64 96 Oxymask 01/21/25 09:57 97.3 F L 99 H 16 130/77 97 Oxymask 01/21/25 06:19 98.1 F 83 20 131/86 99 Room Air O2 Flow Rate 01/21/25 11:43 01/21/25 11:12 01/21/25 10:45 01/21/25 10:25 3 01/21/25 10:15 3 01/21/25 10:05 4 01/21/25 09:57 6 01/21/25 06:19 PG Care Time/CCT Total # of Minutes Spent Total Time Spent with Patient: Total time spent is greater than 50% in coordination of care (as documented) at patient's floor/unit and/or counseling patient: Coding Level of Care Code 96900 IN/OBS CONSULT LVL 2,35M Diagnoses Other spondylosis with radiculopathy, lumbar region M47.26 Diabetes mellitus, type 2 E11.9 Depression F32.A Restless leg syndrome G25.81
[2025-01-21] MEDS: HYDROmorphone INJ 1 MG/ML SYRINGE IV PRN (12:31)
[2025-01-21] MEDS: LANTUS PER UNIT CHARGE SC ONE (16:59)
[2025-01-21] MEDS: DOCUSATE SODIUM/SENNA 50/8.6MG TAB PO SCH (20:45)
[2025-01-21] MEDS: ZOLPIDEM TARTRATE 5 MG TAB PO SCH (20:45)
[2025-01-21] MEDS: GABAPENTIN 600 MG TAB PO SCH (20:46)
[2025-01-21] MEDS: CHOLECALCIFEROL 125 MCG (5,000 UNITS) TAB PO SCH (20:46)
[2025-01-21] MEDS: ATORVASTATIN 10 MG TAB PO SCH (20:46)
[2025-01-21] MEDS: CYANOCOBALAMIN (B-12) 500 MCG TABLET PO SCH (20:46)
[2025-01-21] MEDS ORDERED: LANTUS PER UNIT CHARGE SC SCH (21:00)
[2025-01-22] MEDS: POLYETHYLENE (MIRALAX) 17 GM PACK PO SCH (05:17)
[2025-01-22 06:10] LABS: Hematocrit (blood only) 34.2 % (37.0-47.0); Hemoglobin 11.5 g/dL (12.0-16.0); Immature Granulocytes # (auto) 0.04 K/uL (0.01-0.20); Immature Granulocytes % (auto) 0.4 %; Mean Corpuscular Hemoglobin 30.7 pg (25.0-34.0); Mean Corpuscular Volume 91.2 fL (80.0-100.0); Platelet Count 307 K/uL (130-400); RDW Standard Deviation 45.9 fL (36.4-46.3); Red Blood Count 3.75 M/uL (4.20-5.40); White Blood Count 9.83 K/ul (4.8-10.8)
[2025-01-22 06:30] LABS: Anion Gap 6.0 (3-11); Blood Urea Nitrogen 10.0 mg/dl (6-23); Calcium 8.7 mg/dl (8.6-10.3); Carbon Dioxide 28.0 mmol/L (21-32); Chloride 105.0 mmol/L (98-107); Creatinine Clr Calc Pharmacy 90.2 ml/min; Glucose 100.0 mg/dl (70-99(Fasting)); Potassium 3.7 mmol/L (3.5-5.1); Sodium 139.0 mmol/L (136-145)
[2025-01-22] MEDS: dexAMETHasone 6 MG in SYRINGE 0 ML IV SCH (08:13)
--- NOTE | 2025-01-22 09:14 | Orthopedic Progress Note ---
Date of Service January 22, 2025 Assessment & Plan (1) Other spondylosis with radiculopathy, lumbar region: Plan: Today we will begin physical therapy discontinue her Johns hopefully discharge home in the next few days. Admission and Anticipated Discharge Date Admission Date: January 21, 2025 Subjective Back pain controlled leg symptoms improved Physical Exam Physical Exam: Patient is seen at the bedside. She is comfortable. Constricted testing. Results & Data Vital Signs (Past 12 Hours) Vital Signs Temp Pulse Resp BP Pulse Ox O2 Del Method 01/22/25 08:02 36.8 C 92 H 14 98/65 L 97 Room Air 01/22/25 03:21 36.8 C 78 16 93/57 L 95 Room Air 01/22/25 00:32 36.6 C 79 16 98/60 L 95 Room Air
--- NOTE | 2025-01-22 11:09 | Hospitalist Progress Note ---
Date of Service January 22, 2025 Assessment & Plan (1) Other spondylosis with radiculopathy, lumbar region: (2) Diabetes mellitus, type 2: (3) Depression: (4) Restless leg syndrome: Jame Flores is a 54F with a PMHx of former smoker (quit 11/2024), HTN, DMT2 and RLS who presents to the hospital for elective surgery with Dr. Gilliam. hospital medicine consulted for medical management, [facility] intially consulted, but do not take patients insurance. #S/p Back surgery - S/p Exploration L4-S1 with hardware removal, L3-4 decompression, L3-S1 Fusion with Dr. Gilliam 01/21 Pain control / abx / drain management / dvt proh/ dispo per primary team EBL 50 - hgb 11.5 post op, was 13.9 one month prior - dilutional vs acute blood loss anemia #DMT2 Home meds: Ozempic, metformin, Jardiance [facility] glycemic consult per primary team #Mental health Continue Ambien & hydroxyzine continue prozan #RLS - continue ropinirole #hx of HÉCTOR and HTN - no longer needing meds or CPAP after weight loss Thank you for allowing us to participate in the care of this patient, please reach out with any questions or concerns. Hospital medicine will sign off. Admission and Anticipated Discharge Date Admission Date: January 21, 2025 Supervising Physician Co-Signing Physician Notes Attending Attestation - Chart reviewed, care plan d/w [employer] [place]. I agree w/ the camejo components of her documentation. Aftab Babcock MD Subjective patient reports alot of pain and new numbness and tingling down the right leg passing gas, no BM eager to get rey out Review of Systems Review of Systems: All systems reviewed & are unremarkable except as noted in Subjective Physical Exam Physical Exam: General: NAD, VS as above Resp: normal respiratory effort, lungs clear to auscultation CV: RRR, no murmur, Back: MILENA brain in place Extremities: Moves all extremities, able to wiggle toes bilaterally, : rey in place Neuro: A&O x3, Results & Data Results & Data Vital Signs (Past 12 Hours) Vital Signs Temp Pulse Resp BP Pulse Ox O2 Del Method 01/22/25 08:02 98.2 F 92 H 14 98/65 L 97 Room Air 11/25/25 03:21 98.2 F 78 16 93/57 L 95 Room Air 01/22/25 00:32 97.9 F 79 16 98/60 L 95 Room Air Laboratory Results cbc and chemistry reviewed PG Care Time/CCT Total # of Minutes Spent Total Time Spent with Patient: Total time spent is greater than 50% in coordination of care (as documented) at patient's floor/unit and/or counseling patient: Coding Level of Care Code 03341 SUB INP/OBS CARE 2/35MIN Diagnoses Other spondylosis with radiculopathy, lumbar region M47.26 Diabetes mellitus, type 2 E11.9 Depression F32.A Restless leg syndrome G25.81
--- NOTE | 2025-01-22 12:59 | Electrocardiogram Report ---
Test Reason : Blood Pressure : */* mmHG Vent. Rate : 89 BPM Atrial Rate : 89 BPM P-R Int : 176 ms QRS Dur : 148 ms QT Int : 404 ms P-R-T Axes : 38 -29 0 degrees QTcB Int : 491 ms Normal sinus rhythm Right bundle branch block Abnormal ECG When compared with ECG of 17-Dec-2024 13:51, T wave inversion now evident in Inferior leads T wave inversion now evident in Anterior leads Confirmed by Yon Castillo ([id number]) on 01/22/2025 12:59:32 PM Referred By: Pradip Gilliam Confirmed By: Yon Castillo
[2025-01-22] MEDS: LANTUS PER UNIT CHARGE SC SCH (21:25)
[2025-01-22 23:37] VITALS: RESP 16
[2025-01-23 07:10] VITALS: TEMP 98.2; O2SAT 95
--- NOTE | 2025-01-23 11:02 | Discharge Summary ---
Date of Service January 23, 2025 Admission HPI Per Admitting Provider This is a 54-year-old female well-known to me that presents with persistent back and leg pain after failing course of nonoperative care is here for surgical invention. Principal Diagnosis Lumbar spondylosis with radiculopathy Discharge Data Allergies Allergy/AdvReac Type Severity Reaction Status Date / Time cinnamon Allergy Intermediate Hives Verified 01/21/25 06:14 Consultations 01/21/25 10:51 Consult Hospitalist Routine Procedures Performed Operation Date: 01/21/25 07:45 Actual Procedures p Exploration L4-S1 Fusion, L3-L4 Decompression, L3-S1 Fusion, (Not Applicable) - Praidp Gilliam DO s L4-S1 Hardware Removal(Not Applicable) - Pradip Gilliam DO Ordered Studies 01/21/25 07:45 FL lumbar spine 2-3V Routine Hospital Course (1) Other spondylosis with radiculopathy, lumbar region: Patient went lumbar decompression fusion tolerated so second orthopedic for postoperative. Postop she progressed poorly. MILENA drain decreasing. Pain well- controlled. Excellent strength testing subsidy discharged home. Discharge orders instructions from the chart for further review. Total Time Total Time Spent Total Time Spent (In Minutes): 20 minutes Discharge Plan Discharge Items Patient Disposition: Home - Self-Care Reason For Visit: Degenerative Lumbar Spinal Stenosis Discharge Diagnosis: Lumbar spondylosis with radiculopathy Activity: As commented below Non-emergency contact: Primary Care Provider Call non-emergency contact if: you have any medication questions Follow-up/Referrals: Brett Ayala [Primary Care Provider] - Diet: Regular Addtl Attending Provider Instructions: ACTIVITY RECOMMENDATIONS: SELF CARE INSTRUCTIONS AFTER THORACIC/LUMBAR FUSIONS 1. You may walk to your tolerance. It is good exercise for your legs and back. Expect some back and intermittent leg aches and pains. 2. You may perform "counter-top" level activities (make a sandwich, ratna with a project, etc.). 3. No bending or lifting of more than 10 pounds or back twisting of any nature (roll like a log when turning in bed). 4. You may ride in a car for 20-30 minutes at a time. No driving until after your first visit with your doctor. 5. Frequent changes of position and restricting sitting to 30 minutes at a time will help limit the amount of back spasms and stiffness you may experience. 6. You may discontinue the use of ambulatory aids (cane, crutches, etc.) once your strength and confidence allow. 7. You may network systems engineer the shower and let water strike your incision when you arrive home at least once daily. Do not take a tub bath, sit in a hot tub or go into a swimming pool until after your first recheck in the office. 8. You may resume previous diet. SPECIAL CARE INSTRUCTIONS: VERY IMPORTANT TO READ AND REVIEW A. Your surgical incision has been closed with a cosmetic suture under the skin that will dissolve in about 6 weeks. In 14 days, you can use a pair of clean scissors and cut the suture that is left outside of the skin at the ends of your incision. 1. The small skin tapes can be removed 7 days after surgery if they have not fallen off by that point. 2. You may keep the wound open to air as much as possible to promote healing after post-op day number 5 unless told otherwise by your doctor. 3. If you think the wound looks like it is becoming infected (redness or worsening drainage) and/or you are experiencing fever, chill or worsening back pain and muscle spasms, contact the office so that we may evaluate you as soon as possible. B. Complications are uncommon, but please contact us if you have any signs or symptoms of: 1. wound infection (fever higher than 102.5 degrees F, redness, separation of wound, drainage, or increasing pain from the incision) 2. blood clots in legs (pain, swelling, redness and warmth in legs) 3. urinary tract infection (fever higher than 102.5 degrees F, burning upon urination or increased frequency of urination) 4. nerve problems (inability to walk on your toes or heels, numbness, loss of bowel or bladder control) 5. any other symptoms that concern you C. Please call the office at if you have any concerns or questions about your operation or recovery. D. No smoking! Smoking drastically decreases the chance of a solid fusion. E. Do not take any anti-inflammatory medications (Indocin, Advil, Motrin, Aspirin, Naprosyn, etc.) as these may inhibit the chance of a solid fusion. Tylenol is okay to take for pain. MANAGING PAIN AFTER SPINAL SURGERY 1. Narcotic medication is intended for short-term use and will be provided for surgical pain. Surgical pain usually lasts for a period of 4-6 weeks. Narcotic medication includes Percocet, Vicodin, Darvocet, Tylenol #3 or Lortab. 2. Longer-term pain is more appropriately treated with non-narcotic medication such as Tylenol ES. 3. Muscle spasm is not appropriately treated with narcotics. Muscle relaxers such as Soma, Flexeril or Skelaxin can be used along with Tylenol ES. 4. Remember that we all live with some "aches and pains". This is not unusual or uncommon after an injury or as we get older. a. Back pain is expected and may include muscle spasms for 4 to 6 weeks after surgery. The pain should gradually improve. If the pain worsens for no apparent reason, please contact the office. b. Intermittent leg pain may also be experienced and should not be concerned about unless it worsens for no apparent reason. If so, please contact the office. 5. We will provide appropriate medication within the normal guidelines of their prescribed use. We will also be very cautious and aware of potential abuse and extended duration of patients' medication needs. a. Pain medications are for your comfort and to assist with sleep and rest so that the tissue can heal. They are not provided in order to return to normal activity and should not be used through the day. To do so or worsening pain at night can result from ongoing tissue damage and development of tolerance to the prescribed medicine. 6. Please allow 2-3 days to process refills. Prescriptions will not be mailed but must be picked up at the office. FOLLOW UP VISIT: Keep your scheduled follow-up appointment. Any questions, please call the office at . Pending Studies at Discharge: No Stand-Alone Forms: My [facility] [employer] [facility], Smoking Cessation Medications and DC Order Prescriptions: New oxycodone 5 mg tablet 5 mg PO Q6H PRN (Reason: pain) Qty: 30 0RF Continued fluoxetine 40 mg Capsule 40 mg PO HS furosemide [Lasix] 40 mg Tablet 40 mg PO DAILY PRN (Reason: leg swelling ) atorvastatin 10 mg Tablet 10 mg PO HS metformin 1,000 mg Tablet 1,000 mg PO BID ropinirole 0.5 mg Tablet 0.5 mg PO HS hydroxyzine HCl 25 mg Tablet 25 mg PO HS zolpidem [Ambien] 10 mg Tablet 10 mg PO HS gabapentin 600 mg Tablet 600 mg PO HS Patient Comments: PT STATES RX TID BUT ONLY TAKES HS cholecalciferol (vitamin D3) [Vitamin D3] 125 mcg (5,000 unit) Tablet 125 mcg PO HS cyanocobalamin (vitamin B-12) 1,000 mcg Capsule 1,000 mcg PO HS oxycodone 5 mg tablet 5 mg PO Q6H PRN (Reason: pain, severe) Qty: 30 0RF Jardiance 10 mg Tablet 10 mg PO HS Ozempic 1 mg/dose (4 mg/3 mL) Pen Injector 2 mg SUBCUT WK Patient Comments: > last dose 01/10/25 gemfibrozil 600 mg Tablet 600 mg PO HS Discharge Orders: Discharge Order (Routine); Ordered 01/23/25 Ordered By: Pradip Gilliam Admission Data Admit Date/Time: 01/21/25 09:43 Attending Provider: Pradip Gilliam Admit Provider: Pradip Gilliam Primary Care Provider: Brett Ayala Other Providers: Aftab Babcock
[2025-01-23 13:08] VITALS: BP 104/66; PULSE 100
== END 2025-01-23 14:41 | disposition home or self-care (01) | DRG 402 ==
LOC: ASU 06:09 → 3E 09:43 → INTOOBSV 09:43
DX: Z91.018 Allergy to other foods; M47.26 Other spondylosis with radiculopathy, lumbar region; G25.81 Restless legs syndrome; Z79.84 Long term (current) use of oral hypoglycemic drugs; M51.16 Intervertebral disc disorders with radiculopathy, lumbar region; F32.A Depression, unspecified; G47.33 Obstructive sleep apnea (adult) (pediatric); Z79.85 Long-term (current) use of injectable non-insulin antidiabetic drugs; Z87.891 Personal history of nicotine dependence; E11.42 Type 2 diabetes mellitus with diabetic polyneuropathy; I10 Essential (primary) hypertension; Z79.899 Other long term (current) drug therapy